=== PATIENT | male | born 1970 | race Caucasian/White ===

== ENCOUNTER 2018-04-28 10:47 | Inpatient (IN) | payer OTHER ==
[~2018-04-28] VITALS: Ht 167.6 cm; Wt 85.9 kg
[2018-04-28] VITALS (12 sets, daily range): BP systolic 170–218; BP diastolic 100–153
--- NOTE | ~2018-04-28 | EKG ---
[place], [place] ELECTROCARDIOGRAM REPORT NAME: ELLYN WALTON UNIT #: [id number] ROOM: 526 DOCTOR: KIRIT DRAFT REPORT BIRTHDATE: [address] [facility] Test Date: 2018-04-28 Test Time: 16:17:34 Pat Name: ELLYN WALTON Department: Room: 526 Gender: M Area Forester: Joan Singh : 1970 Requested By: RAJI FRAGOSO Order Number: [id number] Reading MD: Nola Melendez MD Measurements Intervals [place] Rate: 103 P: 59 [place]: 155 QRS: -14 QRSD: 105 T: 78 QT: 369 QTc: 483 Interpretive Statements Sinus tachycardia Left atrial enlargement LVH with secondary repolarization abnormality Anterior ST elevation, probably due to LVH Borderline prolonged QT interval Electronically Signed On 05-02-2018 11:48:14 PST by Nola Melendez MD CM:EKGRPT:ELECTROCARDIOGRAM REPORT [id number] RAJI CESAR DRAFT REPORT RAJI FRAGOSO DO
--- NOTE | ~2018-04-28 | PR ---
[place], [place] PROGRESS NOTE [id number] UNIT #: [id number] ROOM: 526 DOCTOR: KELLEY POSADA MD BIRTHDATE: [birth year] DOS: 05/01/2018 NEPHROLOGY PROGRESS NOTE TIME OF SERVICE: 11:30 a.m. SUBJECTIVE: The patient is seen in followup of severe renal failure. The patient continues to have voiced no complaints. He is eating and drinking well, up and walking. He has diuresed fairly well. Leg edema still present, but improving. His blood pressures remain elevated, but in general they slowly are improving, certainly from the very high levels that they had been. Overnight, blood pressures were around 158/100 and this morning, mostly in the 170s/100 to one-teens. He denies any chest pain, shortness of breath or exertional dyspnea. Unfortunately, his renal function continues to be poor and there has not been any significant improvement such as that what we would expect from a recovery of renal function. His aldosterone and renin activity are still not back. The patient will need to initiate dialysis. Unfortunately, we do not have a provider that can place a tunneled dialysis catheter at this time because of the holiday. We have discussed this with the outpatient dialysis clinic. The nurse there has organized for the patient to get an outpatient tunneled dialysis catheter in [facility] at 11:00 a.m. on May 03. He is not on any blood thinners or aspirin products. He should be n.p.o. after 5:00 a.m., which was explained to the patient. We have ordered a hepatitis panel and B surface antigen to be done, so this would return in time for his first treatment, which would be done on . Outpatient orders for dialysis will be given to the dialysis unit by myself. Volume and hypertension, this will be further managed with volume control with dialysis, titrations of his current medications will also be done, but these were recently just started and like to see how he continues to fair with initiation of dialysis and not be too aggressive at lowering this, as he is likely have this blood pressure for quite some time. I did discuss the possibility of a renal biopsy with him, but given the severity of his renal failure and likelihood of some significant scar tissue and risks of treatment, the patient would like to hold off and prefer to just start dialysis at this time. We will revisit this down the road if need be. Thank you very much for the kind consultation. We will continue to follow. Case was discussed with primary physician, who can organize discharge for the patient, Dr. Wagner. [place], [place] PROGRESS NOTE NAME: E[facility]YN WALTON [facility] [id number] UNIT #: [id number] ROOM: 526 DOCTOR: KELLEY POSADA MD BIRTHDATE: [birth year] KELLEY POSADA MD CM:PNTRANS 29 [phone] KELLEY POSADA MD 05/02/182104 interface
--- NOTE | ~2018-04-28 | PR ---
[place], [place] PROGRESS NOTE NAME: [facility] WALTON [facility] [id number] UNIT #: [id number] ROOM: 526 DOCTOR: KELLEY POSADA MD BIRTHDATE: [birth year] DOS: NEPHROLOGY PROGRESS NOTE SUBJECTIVE: Blood pressures still labile and elevated, but overall do seem to be improving from the 200s/150s and recently now into the 140-180s over 90 to one-teens, diastolics do tend to run high for him, but he has been diuresing fairly well and has lost some weight according to scales. Aldactone was started as well and potassium while still low, has been improving. Sodium did drop a bit, however. His renin and aldosterone levels are still pending. Hemoglobin is stable. His renal function is not significantly improving, however. PHYSICAL EXAMINATION: VITAL SIGNS: Blood pressure 158/100, respiratory rate 20, pulse 91, temperature 97.4. GENERAL: The patient is awake, alert and oriented, no acute distress, moving comfortably around his room, walking without significant shortness of breath or chest pains. His right greater than left lower extremity edema continues, but is slowly improving it appears. No diffuse rashes or breakdowns. LUNGS: Decreased, but clear. CARDIOVASCULAR: Regular rate. No rub. ABDOMEN: Slightly protuberant, but without tenderness or CVA pain. LABORATORIES AND DIAGNOSTICS: Sodium is 134, potassium 3.2, chloride 100, bicarbonate 20, BUN 86, creatinine 6.94. White blood cell count 12.7, hemoglobin 10.1, platelets 457. ASSESSMENT AND PLAN: Severe acute kidney injury versus advanced chronic kidney disease. We will add a renal duplex, though I doubt there is significant renal artery stenosis. I do see that he was on ibuprofen and maybe there is some acute tubular necrosis on top of advanced chronic kidney disease, but with his hematuria and some proteinuria seen, I will send serologies as the differential remains very large as documented in my note from 04/29/2018. At this point, blood pressure is still elevated and I cannot safely do a biopsy, but this may be helpful down the road. No SADIE or ARB at this point, Aldactone as I do suspect with his hypokalemia that there may be a possibility of hyperaldosteronism. Follow up renin and aldosterone levels are pending. Two liter fluid restriction because of hyponatremia is reasonable at this time. We will continue to closely monitor his progress. I did investigate with Radiology, possibly the patient may need to start dialysis as an inpatient. I did discuss it with him and his insight is overall very limited into this. He may require a medical leave of absence for a short while, while this is all sorted through. Hopefully, social science teacher may be able to help him in getting some of these things straightened out tomorrow. [place], [place] PROGRESS NOTE NAME: ANTONELLYN Rico UNIT #: [id number] ROOM: 526 DOCTOR: KELLEY POSADA MD BIRTHDATE: [birth year] KELLEY POSADA MD CM:PNTRANS 13 3 KELLEY POSADA MD 05/01/18101 interface
--- NOTE | ~2018-04-28 | PR ---
[place], [place] PROGRESS NOTE NAME: ELLYN WALTON UNIT #: [id number] ROOM: 526 DOCTOR: BRIJESH GIRALDO MD BIRTHDATE: [birth year] DOS: 04/30/2018 CARDIOLOGY FOLLOWUP VISIT NOTE REASON FOR VISIT: Hypertension and CHF. SUBJECTIVE: The patient is feeling better. He had significant edema. No chest pain, no palpitation, no dizziness, no orthopnea, no PND. REVIEW OF SYSTEMS: Review of the 8 systems negative except as mentioned above. RHYTHM STRIPS: The patient is in sinus rhythm. PHYSICAL EXAMINATION: VITAL SIGNS: Blood pressure 145/78, pulse 70, respiratory rate is 13, weight 82.6 kilos. GENERAL: Alert, comfortable, in no acute distress. NECK: Supple, no distended neck veins, no carotid bruit. CHEST: Symmetrical, nontender. LUNGS: A few scattered rhonchi. Good air entry bilaterally. HEART: Regular rhythm, no S3. ABDOMEN: Benign, nontender. Bowel sounds normal. EXTREMITIES: Showed 2+ edema. Distal pulses are palpable. SKIN: Warm and dry. No cyanosis, no clubbing. RECTAL: Deferred. GENITOURINARY: Deferred. LABORATORY DATA AND MEDICATIONS: Reviewed. Hemoglobin 10.8. BUN 86, creatinine 6.9. Potassium 3.2. IMPRESSION: 1. Acute chronic diastolic heart failure. 2. Acute renal failure. 3. Hypertension. 4. Tobacco smoking. 5. Anemia. RECOMMENDATIONS: 1. Continue diuretics and monitor his blood pressures, renal functions, and daily in and outs. 2. A 2D echo is pending. 3. Stress test when he is more stable and can be done as outpatient. 4. There is no family at bedside at the time of my examination. 5. The patient counseled to quit smoking. [place], [place] PROGRESS NOTE NAME: ELLYN WALTON UNIT #: [id number] ROOM: 526 DOCTOR: BRIJESH GIRALDO MD BIRTHDATE: [birth year] BRIJESH GIRALDO MD CM:PNTRANS [id number] BRIJESH GIRALDO MD 05/01/18 0142 interface
--- NOTE | ~2018-04-28 | EKG ---
[place], [place] ELECTROCARDIOGRAM REPORT NAME: ELLYN WALTON UNIT #: [id number] ROOM: 526 DOCTOR: KIRIT DRAFT REPORT BIRTHDATE: [birth year] [place] Test Date: 2018-04-28 Test Time: 11:21:23 Pat Name: ELLYN WALTON Department: Room: 526 Gender: M C Application Developer: Comfort Keyes : 1970 Requested By: POOL DECKER Order Number: [id number] Reading MD: Nola Melendez MD Measurements Intervals [place] Rate: 96 P: 57 [place]: 154 QRS: -18 QRSD: 106 T: 101 QT: 383 QTc: 484 Interpretive Statements Sinus rhythm LVH with secondary repolarization abnormality Borderline prolonged QT interval Electronically Signed On 04-30-2018 11:24:04 PST by Nola Melendez MD CM:EKGRPT:ELECTROCARDIOGRAM REPORT 1121 [id number] POOL DECKER EPIPHANY DRAFT REPORT POOL DECKER
--- NOTE | ~2018-04-28 | EKG ---
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
--- NOTE | ~2018-04-28 | CON ---
[place], [place] REPORT OF CONSULTATION NAME: ELLYN WALTON UNIT #: [id number] ROOM: 526 DOCTOR: BRIJESH GIRALDO MD BIRTHDATE: [birth year] DOS: 04/29/2018 REASON FOR CONSULTATION: CHF. CLINICAL HISTORY: The patient is a 48-year-old gentleman with history of hypertension, tobacco use, COPD, admitted to the Emergency Room for progressive shortness of breath for 1 week. He also has some orthopnea, but no PND. No fever or chills. No nausea, vomiting, diarrhea. No chest pains, no palpitations. He did have some lower extremity edema. He was admitted for CHF exacerbation and Cardiology consulted for any further recommendation. He was noted to have significant elevation of his renal function with acute renal failure and also borderline elevation of his troponins. He was treated with IV diuretics and symptomatic, feeling better. At the time of examination, the patient is alert, oriented. Denies any chest pain. Breathing is much better. No palpitation, no dizziness, no orthopnea. No nausea, vomiting, diarrhea. No bladder or bowel symptoms. No musculoskeletal symptoms. No neurologic symptoms. REVIEW OF SYSTEMS: Review of the 10 systems negative except as mentioned above. PAST MEDICAL HISTORY: 1. Hypertension. 2. Bronchitis. 3. Anemia. PAST SURGICAL HISTORY: No significant surgical history. SOCIAL HISTORY: The patient does not drink alcohol, does not use illicit drugs, does chew tobacco. FAMILY HISTORY: Father had hypertension and high cholesterol. Mother had diabetes. Both are living. ALLERGIES: No known drug allergies. HOME MEDICATIONS: Reviewed. PHYSICAL EXAMINATION: VITAL SIGNS: Blood pressure is 180/102, respiratory rate is 92, pulse, 20, weight is 86.4 kilos, BMI 30.8. GENERAL: Alert, comfortable, in no acute distress. NECK: Supple, no distended neck veins, no carotid bruit. CHEST: Symmetrical, nontender. LUNGS: Few scattered rhonchi, but good air entry bilaterally. HEART: Regular rhythm, no S3. Grade 1/6 systolic murmur. ABDOMEN: Benign, nontender. Bowel sounds normal. EXTREMITIES: Showed 1+ edema. Distal pulses are palpable. SKIN: Warm and dry. No cyanosis, no clubbing. RECTAL: Deferred. GENITOURINARY: Deferred. [place], [place] REPORT OF CONSULTATION NAME: ELLYN WALTON UNIT #: [id number] ROOM: 526 DOCTOR: KRISTAL MENDEZ,BRIJESH BIRTHDATE: [birth year] MUSCULOSKELETAL: No joint tenderness or swelling. REVIEW OF THE DIAGNOSTIC TESTS: Labs, imaging studies, EKG reviewed. EKG showed sinus rhythm, sinus tachycardia, LV hypertrophy with anterior ST-T changes, also left atrial enlargement. Hemoglobin 9.9, WBC count 13,000, platelet count normal. Potassium 3.3, BUN 79, creatinine 6.7. The troponins are ranged from 0.23 to 0.27. ProBNP was 48,530. MEDICATIONS: Reviewed. IMPRESSION: 1. Acute on chronic heart failure, possible diastolic heart failure. 2. Acute renal failure. 3. Hypertension. 4. Elevated troponin. 5. Non-morbid obesity. RECOMMENDATIONS: 1. The patient denies any chest pain. His breathing is better. 2. Continue IV diuretics and monitor his blood pressure and daily ins and outs as well as his renal function. 3. Elevated troponin positive due to acute renal failure and the patient denies any chest pain. 4. He needs blood pressure control. 5. Watch his hemoglobin and renal function. 6. A 2D echo was ordered to check his LV function and LV hypertrophy. 7. When his blood pressure is stable, Lexiscan stress test, possibly Tuesday. 8. There is no family at bedside at the time of my examination. 9. Renal consultants on case for his acute renal failure. BRIJESH GIRALDO MD CM:CONSTR:REPORT OF CONSULTATION 38 06/13/18 0859 interface
--- NOTE | ~2018-04-28 | PR ---
[place], [place] PROGRESS NOTE NAME: ELLYN WALTON UNIT #: [id number] ROOM: [facility] DOCTOR: ALBINO MENDEZKELLEY Heydi BIRTHDATE: [birth year] DOS: 04/29/2018 NEPHROLOGY PROGRESS NOTE The patient is seen in followup of severe acute kidney injury versus advanced chronic kidney disease. He is without acute complaints overnight. Blood pressures remain on the high end especially his diastolics which sometimes get up in the 120s to 130s. His heart rate has slowed down. He is breathing comfortably. He is saturating well on room air. He had a VQ scan done in the ER for unclear reasons, which was negative. A lower extremity Doppler was late to being done, but it showed no evidence of DVT. Even though his right leg was a bit more swollen than his left and he was slightly tender on the calf. There is increased echogenicity of the renal ultrasound. The bladder was distended, but bilateral ureteral jets were visualized. No hydronephrosis was seen. The right kidney was 9.3, the left kidney 10.4 cm. Doppler evaluation was not apparently done. Urinalysis shows 2+ protein, 2+ blood. Urine eos are pending. FENa was greater than 1%, potassium handling seems appropriate. Protein creatinine ratio was elevated at 5.7 grams per gram. This may be falsely elevated because of his severe loss of GFR. His creatinine today is slightly lower 6.7 from 7.1. It was confirmed that he was taking ibuprofen daily as a p.r.n. medication at home when he would be at work as well. He was started on Lasix IV daily 40 mg and with blood pressures yesterday evening, I added clonidine 0.6 q. 6 hours and hydralazine IV p.r.n. I did want to get his aldosterone and renin levels checked. There are no results of course back yet, but now given that we have the labs sent off, I have added spironolactone 25 mg b.i.d. this morning. Blood pressures do seem to be somewhat improving with this even though it was not charted in the computer yet. His blood pressure is from 180s to 190s over 100s to 120s down 150s/90s. I do not want him dropping much lower than the 150/80 range at this point. OBJECTIVE: VITAL SIGNS: His most recent vital signs are afebrile, heart rates in the 80s-90s, respiratory rate 18, blood pressure 156/86. GENERAL: Awake, alert and oriented, mentally intellectually possibly some delay, but doing very well. Hearing is limited. Oropharynx: Clear. Mucous membranes moist. No JVD or lymphadenopathy. LUNGS: No pleural or pericardial rub. Lung stephenson are clear. ABDOMEN: Soft, slightly distended. No rebound or guarding. EXTREMITIES: Mild edema, stable right greater than left, slightly. Some scarred areas of excoriations unchanged. LABORATORY DATA AND DIAGNOSTICS: White blood cell count 13.0 stable, hemoglobin 9.9, platelets 454. No significant serum eosinophilia. INR 1.1. Sodium 140, potassium 3, chloride 105, bicarbonate 21, BUN 79, creatinine 6.7, glucose 103, A1c 5.9, calcium 8, phosphorus 5.6, magnesium 2.6, albumin 2.3. Vitamin D 16. TSH 3. Troponin 0.26 and stable. Urinalysis mentioned above. ASSESSMENT AND PLAN: Severe acute kidney injury versus advanced chronic kidney disease. Renal duplex will be helpful to rule out a renal artery stenosis; however, at this point, I suspect acute tubular necrosis on top of advanced [place], [place] PROGRESS NOTE NAME: ELLYN WALTON UNIT #: [id number] ROOM: [facility] DOCTOR: KELLEY POSADA MD BIRTHDATE: [birth year] chronic kidney disease being the most likely etiology. I cannot rule out advance glomerulonephritis or glomerulopathy given what likely is some proteinuria, mild hematuria and uncontrolled hypertension. The nephrotic syndrome could be from multiple causes membranous, FSG, minimal change versus others such as a more nephritic pattern of MPGN or IgA nephropathy. Does not have any other evidence of lupus, but certainly that could be on the differential as well as it is very wide at this point. I would not recommend a biopsy acutely. We will need to see where his baseline creatinine comes down to consider serologic evaluation, but for now, blood pressure control is of primary importance and must be brought down slowly. Plan for a goal of around 150/80 and eventually lower still. No SADIE or ARB at this point was added. Aldactone as I suspect there is a possibility of hyperaldosteronism. Renin and aldosterone levels have been sent and pending. The other possibility of Kvng syndrome is possible as well with activation of the epithelial sodium channel. For now, we would like to closely follow serially with laboratories daily and strict intake and output probably a 2-liter fluid restriction will be reasonable as we try to diurese him a bit for his blood pressure. KELLEY POSADA MD CM:PNTRANS [id number] KELLEY POSADA MD 04/29/18 1230 interface
[~2018-04-28 10:47] MED LIST: LOPRESSOR50 M1 PO; ZITHROMAX250 MG PO
[2018-04-28 11:20] LABS: BASO # 0.1 10*3/uL (0.0-0.1); BASO % 0.7 % (0.0-1.0); EOS # 0.3 10*3/uL (0.0-0.4); EOS % 1.8 % (1.0-4.0); HEMATOCRIT 33.8 % (42.0-52.0); HEMOGLOBIN 11.2 g/dl (14.0-18.0); LYMPH # 1.9 10*3/uL (1.3-4.4); LYMPH % 13.6 % (27.0-41.0); MEAN CELL VOLUME 82.4 fl (80.0-94.0); MEAN CORPUSCULAR HGB 27.3 pg (27.0-31.0); MEAN CORPUSCULAR HGB CONC 33.1 g/dl (33.0-37.0); MEAN PLATELET VOLUME 10.2 fl (9.6-12.3); MONO # 0.8 10*3/uL (0.1-1.0); NEUT # 10.5 10*3/uL (2.3-7.9); NEUT % 77.1 % (47.0-73.0); PLATELET COUNT AUTOMATED 506 10*3/uL (130-400); WHITE BLOOD COUNT 13.6 10*3/uL (4.8-10.8)
[2018-04-28 11:38] LABS: ALBUMIN 2.5 gm/dl (3.1-4.5); CREATININE 7.13 mg/dL (0.70-1.30); POTASSIUM 2.8 mmol/L (3.5-5.1); TOTAL PROTEIN 6.4 gm/dL (6.4-8.2)
[2018-04-28 11:43] LABS: TROPONIN I 0.277 ng/ml (<0.045)
--- NOTE | 2018-04-28 11:43 | NUR ---
NOTIFIED BY LAB PTS TROPONIN 0.277. PAULA [employer] CHIEF CREATIVE OFFICER NOTIFIED.
--- NOTE | 2018-04-28 12:50 | NUR ---
PT REMAINS W/O ACUTE DISTRESS NOTED AWAITING ALL RESULTS FOR ADDITIONAL PLAN OF CARE,SAFETY PRECAUTIONS INTACT AND CALL LIGHT WITHIN REACH.PT POSITIONED FOR COMFORT AND WILL CONTINUE TO MONITOR, NO ADDITIONAL COMPLAINTS VOICED.
--- NOTE | 2018-04-28 14:46 | NUR ---
PT TO NUCLEAR MEDICINE FOR LUNG PERFUSION SCAN, NO COMPLAINTS VOICED.
[2018-04-28 15:01] LABS: ACT PARTIAL THROMBO TIME 25.7 SECONDS (20.8-31.5); INTERNATIONAL NORM RATIO 1.1 (2.0-3.5)
--- NOTE | 2018-04-28 15:44 | NUR ---
PT RETURNED FROM LUNG PERFUSION SCAN WITHOUT ACUTE DISTRESS NOTED.
--- NOTE | 2018-04-28 15:55 | NUR ---
A 48, admitted to ICCU, under the services of SAULO Hogue DO with a diagnosis of HYPERTENSIVE EMERGENCY,ACUTE RENAL FAILURE, AND CHF. Chief complaint is SHORTNESS OF BREATH AND LEG SWELLING. Patient arrived via stretcher from ER. Monitor applied. Initial assessment completed. Vital signs taken and recorded. SAULO HOGUE DO notified of admission to the unit. Orders received. See assessment for past medical history, medications and allergies. Patient and/or family oriented to unit. [facility] visitation policy reviewed. Clothing/patient valuable form completed. MIRTHA PENN
--- NOTE | 2018-04-28 17:30 | NUR ---
NOTIFIED OF NEW CONSULT ORDER. NO NEW ORDERS RECEIVED.
[2018-04-28 18:45] LABS: CREATININE 7.13 mg/dL (0.70-1.30)
[2018-04-28 18:52] LABS: BILIRUBIN NEGATIVE (NEGATIVE); BLOOD 2+ (NEGATIVE); CLARITY CLEAR (CLEAR); COLOR YELLOW (YELLOW); GLUCOSE TRACE (NEGATIVE); KETONE NEGATIVE (NEGATIVE); LEUKO ESTERASE NEGATIVE (NEGATIVE); NITRITE NEGATIVE (NEGATIVE); UROBILINOGEN 0.2 E.U./dl (0.2-1.0)
[2018-04-28 19:01] LABS: URINE CREATININE RANDOM 32.7 mg/dL
[2018-04-28 19:12] LABS: RBC 0-2 rbc/hpf (0-2)
[2018-04-28] MEDS ORDERED: TOPCARE IBUPRO200 MG PO (19:17)
[2018-04-28] MEDS ORDERED: COLD & ALLERGY1 EAC1 PO (19:20)
--- NOTE | 2018-04-28 19:25 | NUR ---
DR ALBINO ORANTES.
--- NOTE | 2018-04-28 19:58 | NUR ---
I SPOKE WITH DR ALBINO VASQUEZ: KAYLEE, BP.
--- NOTE | 2018-04-28 20:01 | NUR ---
DR POSADA STATES APPROVAL WITH DR STEWART RE: RENIN AND ALDOSTERONE TESTING AND TO NOTIFY LAB AND ORDER.
--- NOTE | 2018-04-28 20:17 | NUR ---
I SPOKE TO MARTI IN LAB AND BECAUSE SPECIMEN IS A SEND OUT AND WILL BE DONE AND ORDERED WITH AM LABS.
--- NOTE | 2018-04-28 21:03 | NUR ---
DR RODRÍGUEZ NOTIFIED OF TROPONIN.
--- NOTE | 2018-04-28 21:04 | NUR ---
ADDENDUM: REMINDED DR RODRÍGUEZ THAT ALDOSTERONE AND RENIN ALSO ORDERED PER DR POSADA APPROVAL BY DR STEWART. AND THAT CLONIDINE STARTED EARLY PER DR POSADA.
[2018-04-29] VITALS (7 sets, daily range): BP systolic 152–196; BP diastolic 70–123
[2018-04-29 05:16] LABS: ALBUMIN 2.3 gm/dl (3.1-4.5); CREATININE 6.7 mg/dL (0.70-1.30); PHOSPHOROUS 5.6 mg/dL (2.5-4.9); TOTAL PROTEIN 5.7 gm/dL (6.4-8.2)
--- NOTE | 2018-04-29 05:19 | NUR ---
HYDRALAZINE GIVEN FOR BP 181/123 AB AND 180/102 MANUALLY LA.
[2018-04-29 05:59] LABS: BASO # 0.1 10*3/uL (0.0-0.1); BASO % 0.8 % (0.0-1.0); EOS # 0.4 10*3/uL (0.0-0.4); EOS % 3.2 % (1.0-4.0); HEMATOCRIT 30.6 % (42.0-52.0); HEMOGLOBIN 9.9 g/dl (14.0-18.0); LYMPH # 2.2 10*3/uL (1.3-4.4); LYMPH % 16.8 % (27.0-41.0); MEAN CELL VOLUME 84.3 fl (80.0-94.0); MEAN CORPUSCULAR HGB 27.3 pg (27.0-31.0); MEAN CORPUSCULAR HGB CONC 32.4 g/dl (33.0-37.0); MEAN PLATELET VOLUME 10.6 fl (9.6-12.3); MONO # 0.8 10*3/uL (0.1-1.0); MONO % 6.1 % (3.0-9.0); NEUT # 9.4 10*3/uL (2.3-7.9); NEUT % 72.6 % (47.0-73.0); PLATELET COUNT AUTOMATED 454 10*3/uL (130-400); RED BLOOD COUNT 3.63 10*6/uL (4.50-5.90); RED CELL DISTRI WIDTH 13.9 % (0-14.5)
[2018-04-29 06:43] LABS: INTERNATIONAL NORM RATIO 1.1 (2.0-3.5)
[2018-04-29 07:17] LABS: VITAMIN D, 25-HYDROXY 16.2 ng/mL (30-100)
--- NOTE | 2018-04-29 08:45 | NUR ---
DR OLIVEIRA UPDATED ON PT'S CONTINUED HYPERTENSION. NEW ORDERS RECEIVED.
--- NOTE | 2018-04-29 09:15 | NUR ---
DR LINARES IN TO SEE PT. UPDATED HIM ON PT'S CONDITION AND PLAN OF CARE.
--- NOTE | 2018-04-29 09:30 | NUR ---
DR PRITCHARD CALLED IN REGARDING PT'S CONDITON AND AM LAB RESULTS. NEW ORDERS RECEIVED.
--- NOTE | 2018-04-29 14:44 | NUR ---
Shift chart check completed.
--- NOTE | 2018-04-29 17:47 | NUR ---
EXPLAINED TO PATIENT & SONS THAT HE NEEDS TO LIMIT FLUIDS, LIMIT SALT & ELEVATE FEET.
--- NOTE | 2018-04-29 23:30 | NUR ---
MEDICATED WITH HYDRALAZINE PER PRN ORDER FOR BP 180/116 (M).
--- NOTE | 2018-04-29 23:40 | NUR ---
MEDICATED WITH TLENOL AND RESTORIL PER PRN ORDER FOR C/O HEADACHE AND INSOMNIA.
[2018-04-30] VITALS: BP 180/116
--- NOTE | 2018-04-30 01:15 | NUR ---
BP 160/106 (M) AT THIS TIME. TYLENOL AND RESTORIL EFFECTIVE.
--- NOTE | 2018-04-30 01:21 | NUR ---
DR HALE NOTIFIED OF BP 160/106 AND NO NEW ORDERS RECEIVED AT THIS TIME.
[2018-04-30 04:00] VITALS: BP 160/104
[2018-04-30 05:59] LABS: BASO # 0.1 10*3/uL (0.0-0.1); BASO % 0.6 % (0.0-1.0); EOS # 0.5 10*3/uL (0.0-0.4); EOS % 4.2 % (1.0-4.0); HEMATOCRIT 30.9 % (42.0-52.0); HEMOGLOBIN 10.1 g/dl (14.0-18.0); LYMPH # 2.7 10*3/uL (1.3-4.4); LYMPH % 21.4 % (27.0-41.0); MEAN CELL VOLUME 83.7 fl (80.0-94.0); MEAN CORPUSCULAR HGB 27.4 pg (27.0-31.0); MEAN CORPUSCULAR HGB CONC 32.7 g/dl (33.0-37.0); MEAN PLATELET VOLUME 10.9 fl (9.6-12.3); MONO # 0.9 10*3/uL (0.1-1.0); MONO % 6.9 % (3.0-9.0); NEUT # 8.4 10*3/uL (2.3-7.9); NEUT % 66.3 % (47.0-73.0); PLATELET COUNT AUTOMATED 457 10*3/uL (130-400); RED BLOOD COUNT 3.69 10*6/uL (4.50-5.90); WHITE BLOOD COUNT 12.7 10*3/uL (4.8-10.8)
[2018-04-30 06:08] LABS: CREATININE 6.94 mg/dL (0.70-1.30); POTASSIUM 3.2 mmol/L (3.5-5.1)
[2018-04-30 08:00] VITALS: BP 144/98
[2018-04-30 12:00] VITALS: BP 177/123
[2018-04-30 17:00] VITALS: BP 158/100
--- NOTE | 2018-04-30 17:17 | NUR ---
MANUAL BP 158/100. SCHEDULED MEDS GIVEN. DR OLIVEIRA NOTIFIED ALSO. NO NEW ORDERS AT THIS TIME.
--- NOTE | 2018-04-30 17:46 | NUR ---
DR POSADA IN TO SEE PT. AWARE OF BP'S.
[2018-04-30 20:00] VITALS: BP 179/120
[2018-05-01] VITALS: BP 174/110
[2018-05-01 04:00] VITALS: BP 178/109
[2018-05-01 08:26] LABS: BASO # 0.1 10*3/uL (0.0-0.1); BASO % 0.7 % (0.0-1.0); EOS # 0.3 10*3/uL (0.0-0.4); EOS % 3.2 % (1.0-4.0); HEMATOCRIT 30.2 % (42.0-52.0); HEMOGLOBIN 9.8 g/dl (14.0-18.0); LYMPH # 1.8 10*3/uL (1.3-4.4); LYMPH % 17.3 % (27.0-41.0); MEAN CELL VOLUME 83.7 fl (80.0-94.0); MEAN CORPUSCULAR HGB 27.1 pg (27.0-31.0); MEAN CORPUSCULAR HGB CONC 32.5 g/dl (33.0-37.0); MEAN PLATELET VOLUME 10.3 fl (9.6-12.3); MONO # 0.7 10*3/uL (0.1-1.0); MONO % 6.7 % (3.0-9.0); NEUT # 7.3 10*3/uL (2.3-7.9); NEUT % 71.6 % (47.0-73.0); PLATELET COUNT AUTOMATED 433 10*3/uL (130-400); RED BLOOD COUNT 3.61 10*6/uL (4.50-5.90); RED CELL DISTRI WIDTH 14.1 % (0-14.5); WHITE BLOOD COUNT 10.3 10*3/uL (4.8-10.8)
[2018-05-01 08:46] LABS: ALBUMIN 2.4 gm/dl (3.1-4.5); CREATININE 7.12 mg/dL (0.70-1.30); POTASSIUM 3.2 mmol/L (3.5-5.1)
--- NOTE | 2018-05-01 09:45 | NUR ---
PATIENT MEDICATED PER DRS ORDERS AT THIS TIME. RN WILL CONTINUE TO MONITOR
--- NOTE | 2018-05-01 11:23 | NUR ---
PER DR POSADA= PATIENT HAS APPOINTMENT TO HAVE DIALYSIS CATHETER INSERTED AT [facility] ON TuesdayMay AT 11AM. PATIENT IS TO REMAIN NPO AFTER 5AM ON THE IN PREPARATION. ALSO TO USE ENTRANCE A AND THEN GO TO REGISTRATION.
[2018-05-01 12:00] VITALS: BP 174/110
--- NOTE | 2018-05-01 12:47 | NUR ---
Customer Greeter in to talk to patient. Patient states lives at HOME with PARENTS. There are NO steps in the home. Physician: NONE AT THIS TIME, STATES HIS DOCTOR LEFT [facility] Pharmacy: [facility] Home health services: NONE Patient's level of ADLs: INDEPENDENT Patient has working utilities: YES DME: NONE Follow-up physician's appointment after d/c: WILL FIND ONE AFTER DICHARGE AND MAKE APPOINTMENT Does patient want to access PORTAL?: NO Discharge plan PT STATES HE PLANS TO RETURN HOME WITH HIS PARENTS AFTER DISCHARGE AND HAS NO NEEDS AT HOME AT THIS TIME. WILL CONTINUE TO FOLLOW.. GLADIS YOUNG
[2018-05-01] MEDS ORDERED: ALDACTONE25 MG PO (13:46)
[2018-05-01] MEDS ORDERED: FUROSEMIDE80 MG PO (13:46)
[2018-05-01] MEDS ORDERED: 'CLONIDINE0.1 MG PO (13:46)
[2018-05-01 14:54] LABS: ALBUMIN 2.5 gm/dl (3.1-4.5); ALKALINE PHOSPHATASE 67 U/L (45-117); BILIRUBIN, DIRECT < 0.1 mg/dL (0.0-0.2); SGOT/AST 20 IU/L (3-35); SGPT/ALT 28 U/L (12-78); TOTAL PROTEIN 6.4 gm/dL (6.4-8.2)
--- NOTE | 2018-05-01 16:05 | NUR ---
IV discontinued. Site asymptomatic. Pressure applied. Sterile dressing applied. KARLOS OSPINA
--- NOTE | 2018-05-01 16:10 | NUR ---
Discharge instructions reviewed with patient/family. Patient receptive and verbalizes understanding. Follow-up care arranged. Written instructions given to patient/family. KARLOS OSPINA
--- NOTE | 2018-05-01 16:16 | NUR ---
PATIENT OFF THE FLOOR WITH FAMILY AT THIS TIME. ALL BELONGINGS WITH PATIENT
[2018-05-02 06:06] LABS: HEP B CORE AB TOTAL 006718 Negative (Negative)
[2018-05-04 04:07] LABS: HEPATITIS B SURFACE AB 006395 Non Reactive (.); HEPATITIS B SURFACE AG Negative (Negative); HEPATITIS C VIRUS ANTIBODY <0.1 s/co (0.0-0.9)
[2018-05-29] MEDS ORDERED: LISINOPRIL20 MG PO (08:36)
[2018-05-29] MEDS ORDERED: COREG3.125 MG PO (08:37)
== END 2018-05-01 16:16 | disposition home or self-care (01) | DRG 682 ==
LOC: ED → EDHOLD 11:58 → 5E 11:58 → ICCU 13:51 → 5E 04-30 10:48
PROVIDERS: Family Medicine; Internal Medicine; Internal Medicine Nephrology; Nurse Practitioner Family; Surgery; ADMIT Internal Medicine
DX: N17.0 Acute kidney failure with tubular necrosis (principal); R65.11 Systemic inflammatory response syndrome (SIRS) of non-infectious origin with acute organ dysfunction; E43 Unspecified severe protein-calorie malnutrition; I50.33 Acute on chronic diastolic (congestive) heart failure; I16.1 Hypertensive emergency; E87.1 Hypo-osmolality and hyponatremia; I11.0 Hypertensive heart disease with heart failure; R74.8 Abnormal levels of other serum enzymes; E87.6 Hypokalemia; D64.9 Anemia, unspecified; D72.829 Elevated white blood cell count, unspecified; E66.8 Other obesity; T39.395A Adverse effect of other nonsteroidal anti-inflammatory drugs [NSAID], initial encounter; R73.9 Hyperglycemia, unspecified; E83.41 Hypermagnesemia; I87.2 Venous insufficiency (chronic) (peripheral); D47.3 Essential (hemorrhagic) thrombocythemia; Z72.0 Tobacco use; Z71.6 Tobacco abuse counseling; Z83.3 Family history of diabetes mellitus; Z82.49 Family history of ischemic heart disease and other diseases of the circulatory system; Z83.438 Family history of other disorder of lipoprotein metabolism and other lipidemia; Z68.30 Body mass index [BMI] 30.0-30.9, adult; Z79.899 Other long term (current) drug therapy; Y92.89 Other specified places as the place of occurrence of the external cause

== ENCOUNTER → 2018-05-09 | Outpatient (CLI) | payer OTHER ==
[~2018-05-09] MED LIST changes: +'CLONIDINE0.1 MG PO; +ALDACTONE25 MG PO; +COLD & ALLERGY1 EAC1 PO; +COREG3.125 MG PO; +FUROSEMIDE80 MG PO; +LISINOPRIL20 MG PO; +TOPCARE IBUPRO200 MG PO
== END | disposition home or self-care (01) ==
LOC: RESCLI 01:45
DX: I11.0 Hypertensive heart disease with heart failure (principal); I50.22 Chronic systolic (congestive) heart failure; N17.0 Acute kidney failure with tubular necrosis; R74.8 Abnormal levels of other serum enzymes; I87.2 Venous insufficiency (chronic) (peripheral); F17.210 Nicotine dependence, cigarettes, uncomplicated; Z71.6 Tobacco abuse counseling; Z79.899 Other long term (current) drug therapy

== ENCOUNTER → 2018-05-29 | Outpatient (CLI) | payer OTHER ==
--- NOTE | ~2018-05-29 | ST ---
[place], [place] EXERCISE STRESS TEST REPORT NAME: ELLYN WALTON UNIT #: [id number] ROOM: DOCTOR: JUDD ROWE MD BIRTHDATE: [birth year] DOS: 05/29/2018 EXERCISE STRESS TEST REASON: Acute diastolic heart failure, elevated troponin. PROCEDURE DETAILS: The patient walked on a full Devon protocol for 9 minutes with an additional 50 seconds at stage 3, for a total of 9 minutes 50 seconds. He stopped for fatigue and had no chest pain. His resting heart rate of 87 bernarda to 150, which represented 87% of his maximum predicted heart rate. His resting blood pressure of 140/94 bernarda to 164/100. He did have occasional isolated PVCs, but no other arrhythmias. His electrocardiogram showed left ventricular hypertrophy, but he did not have any diagnostic electrocardiographic changes with exercise. He had no chest pain. One minute prior to the completion of the exercise protocol, he was given radionuclide intravenously. IMPRESSIONS: 1. Good exercise capacity without chest pain or diagnostic electrocardiographic changes. 2. Jhaveri treadmill score 9.6 consistent with low risk for major adverse cardiac events. 3. Radionuclide administered. Please see the separate imaging report for further details of the patient's stress test results. JUDD ROWE MD CM:STRESS:EXERCISE STRESS TEST REPORT [id number] JUDD ROWE MD
--- NOTE | 2018-05-29 08:30 | NUR ---
INFORMED CONSENT OBTAINED FOR A CARDIOLITE STRESS TEST WITH DR. ROWE. RESTING EKG NSR WITH PVC'S, SUPINE BP OF 148/98, HT RT OF 87 AND A HT RT OF 95, WITH A BP OF 140/94 IN THE STANDING POSITION. PT COMPLETED 9:50 OF A MARY JANE PROTOCOL WITH STAGE THREE HELD FOR 50 SECONDS AT 3.4 MPH AND 14% GRADE. REACHED A PEAK HT RT OF 150 WHICH IS 87% OF PREDICTED MAX WITH A PEAK BP OF 164/100. TEST TERMINATED DUE TO FATIUGE. DENIED CHEST PAIN. EXERCISE TOLERANCE WAS HIGH. LAST RECOVERY HT RT OF 129 WITH A BP OF 144/90. TAKEN TO NUCLEAR IMAGING IN STABLE CONDITION.
== END | disposition home or self-care (01) ==
LOC: CARD 00:15
DX: I50.31 Acute diastolic (congestive) heart failure (principal); R74.8 Abnormal levels of other serum enzymes

== ENCOUNTER → 2018-12-04 | Outpatient (CLI) | payer MEDICARE, MEDICAID ==
[2018-12-04 12:03] LABS: ACT PARTIAL THROMBO TIME 25.9 SECONDS (20.0-32.1); INTERNATIONAL NORM RATIO 0.9 (2.0-3.5)
== END | disposition home or self-care (01) ==
LOC: LAB 10:31
PROVIDERS: Surgery Vascular Surgery
DX: D68.9 Coagulation defect, unspecified (principal)

== ENCOUNTER → 2020-03-26 | Outpatient (CLI) | payer MEDICARE, MEDICAID ==
[~2020-03-26] MED LIST changes: +AURYXIA210 MG PO; -COREG3.125 MG PO; +COREG6.25 MG PO; -LISINOPRIL20 MG PO; +NEPHRO-VITE TA0.8 MG PO; +ZESTRIL10 MG PO
--- NOTE | 2020-03-26 09:33 | NUR ---
INFORMED SIGNED CONSENT OBTAINED FOR LEXISCAN STRESS TEST WITH DR CARD. RESTING EKG NSR HR 63 T WAVE INVERSION , BP 122/60. PULSE OX 100% LUNGS CLEAR. PT COMPLETED ONE MINUTE OF A LEXISCAN PROTOCOL WITH PT RECEIVING LEXISCAN 0.4MG IV OVER 10 SECONDS. PT C/O SOB WITH INJECTION THAT RESOLVED. NO ARRHYTHMIAS OR ST CHANGES NOTED. LAST RECOVERY HR OF 83 BP[ 130/62 PT IN STABLE CONDITION, AWAITING NUCLEAR IMAGES.
== END | disposition home or self-care (01) ==
LOC: US 00:15
PROVIDERS: ATTEND Internal Medicine Nephrology
DX: Z01.818 Encounter for other preprocedural examination (principal); N28.9 Disorder of kidney and ureter, unspecified; I51.7 Cardiomegaly; R07.89 Other chest pain

== ENCOUNTER 2020-04-17 06:47 | Inpatient (IN) | payer MEDICARE, MEDICAID ==
[~2020-04-17] VITALS: Ht 168 cm; Wt 71.3 kg
[2020-04-17] VITALS (7 sets, daily range): BP systolic 70–84; BP diastolic 38–50
--- NOTE | 2020-04-17 06:56 | NUR ---
PT GIVEN URINAL AT THIS TIME AND INFORMED OF NEED FOR URINE SAMPLE. PT STATES HE WILL LET US KNOW WHEN HE NEEDS TO URINATE.
[2020-04-17 07:22] LABS: HEMATOCRIT 37.6 % (42.0-52.0); MEAN CORPUSCULAR HGB 30.3 pg (27.0-31.0); MEAN CORPUSCULAR HGB CONC 32.2 g/dl (33.0-37.0); MEAN PLATELET VOLUME 9.8 fl (9.6-12.3); NUCLEATED RED BLOOD CELL 0.1 % (0.0-0.0); PLATELET COUNT AUTOMATED 311 10*3/uL (130-400); RED CELL DISTRI WIDTH 15.4 % (0-14.5); WHITE BLOOD COUNT 15.9 10*3/uL (4.8-10.8)
[2020-04-17 07:39] LABS: ALBUMIN 3.8 gm/dl (3.1-4.5); BASOPHILS 1 % (0-1); CREATININE 12.9 mg/dL (0.70-1.30); PLATELET SUFFICIENCY NORMAL (NORMAL); POTASSIUM 3.7 mmol/L (3.5-5.1); TOTAL CELLS COUNTED 100 #CELLS; TOTAL PROTEIN 8.6 gm/dL (6.4-8.2)
--- NOTE | 2020-04-17 09:32 | NUR ---
DR FRAGOSO TALKED WITH DR OCHOA WHO IS COVERING FOR DR GARCIA ON THE PHONE.
--- NOTE | 2020-04-17 11:52 | NUR ---
DR OCHOA IN PT'S ROOM DISCUSSING PLAN OF CARE WITH. DR OCHOA AWARE OF PT'S BLOOD PRESSURE.
--- NOTE | 2020-04-17 22:12 | NUR ---
PATIENT NIBP 65/42. MANUAL BP TAKEN 70/50. BRADY CARD RN AWARE. PATIENT IS ASYMPTOMATIC.
--- NOTE | 2020-04-17 22:21 | NUR ---
ADVISED DR. COOPER OF THIS PATIENTS BP AT THIS TIME, STATES IF ASYMPTOMATIC TO MONITOR.
[2020-04-18] VITALS (10 sets, daily range): BP systolic 80–114; BP diastolic 44–69
[2020-04-18 05:49] LABS: ALBUMIN 3.5 gm/dl (3.1-4.5); CREATININE 15.7 mg/dL (0.70-1.30); POTASSIUM 3.8 mmol/L (3.5-5.1)
[2020-04-18 05:57] LABS: FREE T4 0.73 ng/dl (0.76-1.46); THYROID STIM HORMONE (HS) 2.06 uIU/ml (0.358-4.75)
[2020-04-18 06:42] LABS: BASO # 0.1 10*3/uL (0.0-0.1); BASO % 0.4 % (0.0-1.0); EOS % 0.1 % (1.0-4.0); HEMATOCRIT 34.6 % (42.0-52.0); LYMPH # 2.1 10*3/uL (1.3-4.4); LYMPH % 14.8 % (27.0-41.0); MEAN CELL VOLUME 90.6 fl (80.0-94.0); MEAN CORPUSCULAR HGB 30.6 pg (27.0-31.0); MEAN CORPUSCULAR HGB CONC 33.8 g/dl (33.0-37.0); MEAN PLATELET VOLUME 10.7 fl (9.6-12.3); MONO # 1.5 10*3/uL (0.1-1.0); MONO % 10.7 % (3.0-9.0); NEUT # 10.1 10*3/uL (2.3-7.9); NEUT % 72.9 % (47.0-73.0); NUCLEATED RED BLOOD CELL 0.1 % (0.0-0.0); PLATELET COUNT AUTOMATED 327 10*3/uL (130-400); RED BLOOD COUNT 3.82 10*6/uL (4.50-5.90); RED CELL DISTRI WIDTH 15.2 % (0-14.5); WHITE BLOOD COUNT 13.9 10*3/uL (4.8-10.8)
[2020-04-18 08:15] LABS: VITAMIN D, 25-HYDROXY 34.7 ng/mL (30-100)
--- NOTE | 2020-04-18 09:00 | NUR ---
STARLA HUTTON CALLED FROM FLOOR AND WAS TOLD BY DIALYSIS NURSE PT WILL NOT BE ABLE TO HAVE DIALYSIS TODAY WITH LOW BLOOD PRESSURE SO PT NEEDS TO BE PUT ON LEVOPHED AND PUT IN ICCU PER NEPHROLOGY.
--- NOTE | 2020-04-18 11:15 | NUR ---
SPOKE WITH [facility] DAY[facility] CRISIS, ONEIL, I ASKED HER ABOUT THIS CLIENT AND THE SITUATION, SHE SAID THAT SHE WOULD CALL THE BOARD AND GET BACK TO ME. SHE CALLED ME BACK AND SAID THAT THE BOARD SAID THAT I NEED TO CALL ALL THE PRIVATE HOSPITALS THAT I WOULD NORMALLY REFER TO AND SEE IF THEY WOULD ACCEPT THIS CLIENTS INS, I DID CALL 5 INPATIENT PSYCHIATRIC UNITS, WHICH ALL SAID NO, I CALLED ONEIL BACK AND SHE WILL CALL THE BOARD BACK AND THEN CALL ME, IF THEY AGREE TO FUND A PRIVATE INPATIENT PSYCHIATRIC STAY THEN SHE HAS TO COME HERE AND PRESCREEN THOUGH CLIENT WERE GOING TO THE [facility] AND THEN SHE OR I WILL HAVE TO CALL THE SPECIFIC PRIVATE HOSPITALS ON THE LIST THE BOARDS APPROVED UNITS AND TRY TO FIND A BED FOR THIS CLIENT, I WILL WAIT TO HEAR FROM HER.
--- NOTE | 2020-04-18 12:17 | NUR ---
PATIENT RECEIVED PNEUMOCOCCAL VACCINE 0.5ML IM IN LEFT DELTOID AND TOLERATED WELL.
--- NOTE | 2020-04-18 14:00 | NUR ---
Pt transferred from ED hold to room 504-2. Admission assessment completed. See interventions.
--- NOTE | 2020-04-18 14:09 | NUR ---
BELEN SORTOPTOM AWARE OF THE NOTE SHE PUT IN ON THIS PATIENT AND WILL AMEND THE NOTE.
--- NOTE | 2020-04-18 20:10 | NUR ---
DIALYSIS NURSE TELLS THIS NURSE THAT PT RIGHT AV FISTULA SITE IS CLOTTED AND THAT DR TALLEY HAS BEEN NOTIFIED. DIALYSIS NURSE STATES THAT DR TALLEY GAVE FOLLOWING VERBAL ORDERS: PT IS IN NEED OF BEING TRANSFERRED TO [place] AND DR URBAN IS NEEDED TO BE CONSULTED. WILL NOTIFY HOSPITALIST OF THIS.
--- NOTE | 2020-04-18 20:35 | NUR ---
DR MCKENZIE NOTIFIED THAT PT IS IN NEED OF BEING TRANSFERRED TO [facility], PER DR TALLEY. DR URBAN NEEDS TO BE CONSULTED IN ORDER TO REVASCULARIZE RIGHT AV FISTULA, PER DIALYSIS NURSE AND DR TALLEY.
[2020-04-19] VITALS (17 sets, daily range): BP systolic 84–117; BP diastolic 51–71
--- NOTE | 2020-04-19 03:49 | NUR ---
ZOFRAN GIVEN FOR NAUSEA. WILL MONITOR FOR EFFECTIVENESS.
--- NOTE | 2020-04-19 04:25 | NUR ---
PT STATES THAT HE FEELS ANXIOUS ABOUT TUNNELED CATHETER PROCEDURE TODAY. DR OLIVEIRA NOTIFIED AND STATES TO GIVEN PT RESTORIL 15 MG PO. MEDICAITON GIVEN. WILL MONITOR FOR EFFECTIVENESS. CALL LIGHT IN REACH.
--- NOTE | 2020-04-19 04:47 | NUR ---
ZOFRAN IS SOMEWHAT EFFECTIVE.
--- NOTE | 2020-04-19 05:25 | NUR ---
RESTORIL EFFECTIVE. PT SLEEPING IN BED AT THIS TIME.
[2020-04-19 06:34] LABS: BASO % 0.3 % (0.0-1.0); HEMATOCRIT 33.5 % (42.0-52.0); LYMPH # 1.3 10*3/uL (1.3-4.4); MEAN CELL VOLUME 90.5 fl (80.0-94.0); MEAN CORPUSCULAR HGB 30.3 pg (27.0-31.0); MEAN CORPUSCULAR HGB CONC 33.4 g/dl (33.0-37.0); MEAN PLATELET VOLUME 10.6 fl (9.6-12.3); MONO # 1.5 10*3/uL (0.1-1.0); MONO % 11.7 % (3.0-9.0); NEUT # 9.7 10*3/uL (2.3-7.9); NEUT % 76.7 % (47.0-73.0); PLATELET COUNT AUTOMATED 312 10*3/uL (130-400); WHITE BLOOD COUNT 12.6 10*3/uL (4.8-10.8)
[2020-04-19 06:38] LABS: POTASSIUM 3.9 mmol/L (3.5-5.1)
--- NOTE | 2020-04-19 08:11 | NUR ---
Dr. Nair notified of phosphorus of 9.2
--- NOTE | 2020-04-19 08:30 | NUR ---
Dr. Quiñonez was notified of phosphorus of 9.2
--- NOTE | 2020-04-19 12:20 | NUR ---
PATIENT RETURNED FROM OR, LEFT FEMORAL DIALYSIS CATHETER IN PLACE.
--- NOTE | 2020-04-19 12:40 | NUR ---
PER DIALYSIS NURSE, SHE SPOKE WITH DR. TOBIN, WHO WANTS THE PATIENT TO GET DIALYSIS TREATMENT NOW VIA LEFT FEMORAL TEMPORARY DIALYSIS CATHETER. PATIENT TO DIALYSIS BY BED AT THIS TIME.
--- NOTE | 2020-04-19 14:22 | NUR ---
Dialysis nurse states that temporary dialysis port is not working. States that it is clogging and she is having to flush it with 30 cc of fluid frequently. States that pt is not receiving a treatment. States that Dr. Schroeder is aware and he attempted to manipulate but it is still not functioning. States that pt needs sent out, states Dr. Quiñonez is also aware she notified him. States pt needs sent to [place] to have fistula cleaned out. Pt is agreeable to transfer.
--- NOTE | 2020-04-19 14:31 | NUR ---
Dr. Nair called and states that [facility] will call when they have a bed available.
--- NOTE | 2020-04-19 14:36 | NUR ---
Updated pt son Flaco Markham at [phone] of plan for transfer to [facility] due to issues with access for dialysis.
--- NOTE | 2020-04-19 15:10 | NUR ---
Dr. Nair was to the floor and states that transfer is not going to happen today now. States that Dr. Schroeder is going to revascularize the site to pt rt arm on tuesday here at [facility]. Notified Dialysis nurse, she states she is aware and already spoke with Dr. Quiñonez. Notified pt son of this.
--- NOTE | 2020-04-19 15:50 | NUR ---
Pt transported back from dialysis to room. Pt had 2.5 hour treatment. Dialysis nurse states that pt is going to have treatment again tomorrow.
--- NOTE | 2020-04-19 17:30 | NUR ---
Pt up to bedside commode with assist of this RN. Pt is very unsteady. Pt had loose stool mixed with urine in bedside. Unable to send urine specimen. Assisted back to bed and bed alarm armed.
--- NOTE | 2020-04-19 19:45 | NUR ---
TOOK OVER CARE OF PT AT THIS TIME. PT RESTING IN BED. RESPIRATIONS UNLABORED. ASSESSMENT COMPLETE. DIALYSIS CATHETER DRESSING C/D/I WITH NO LEAKAGE NOTED. PT DENIES PAIN AND DISTRESS. WILL CONTINUE TO MONITOR. SAFETY MEASURES IN PLACE. CALL LIGHT IN REACH.
[2020-04-20] VITALS: BP 108/68
--- NOTE | 2020-04-20 01:00 | NUR ---
PT UP TO BEDSIDE COMMODE AT THIS TIME, UNSTEADY AND REQUIRING 2 STAFF MEMBERS TO HELP WITH TRANSFER. PT NOTIFIED THAT HE IS NPO AT THIS TIME FOR A POSSIBLE PROCEDURE LATER IN THE DAY. RESPIRATIONS UNLABORED. PT ASSISTED BACK TO BED. CALL LIGHT IN REACH.
[2020-04-20 07:26] LABS: BASO % 0.3 % (0.0-1.0); HEMATOCRIT 32.2 % (42.0-52.0); LYMPH # 1.2 10*3/uL (1.3-4.4); LYMPH % 11.8 % (27.0-41.0); MEAN CORPUSCULAR HGB 29.9 pg (27.0-31.0); MEAN CORPUSCULAR HGB CONC 32.9 g/dl (33.0-37.0); MEAN PLATELET VOLUME 10.5 fl (9.6-12.3); MONO # 1.2 10*3/uL (0.1-1.0); MONO % 11.6 % (3.0-9.0); NEUT # 7.7 10*3/uL (2.3-7.9); NEUT % 74.9 % (47.0-73.0); PLATELET COUNT AUTOMATED 262 10*3/uL (130-400); RED BLOOD COUNT 3.54 10*6/uL (4.50-5.90); RED CELL DISTRI WIDTH 15.5 % (0-14.5); WHITE BLOOD COUNT 10.3 10*3/uL (4.8-10.8)
[2020-04-20 07:36] LABS: POTASSIUM 3.9 mmol/L (3.5-5.1)
[2020-04-20 07:37] LABS: CREATININE 15.5 mg/dL (0.70-1.30)
[2020-04-20 08:00] VITALS: BP 99/57
[2020-04-20 12:00] VITALS: BP 107/62
[2020-04-20 16:00] VITALS: BP 91/67
[2020-04-20 20:00] VITALS: BP 87/55
--- NOTE | 2020-04-20 20:13 | NUR ---
ELECTRODES REPLACED AND MEDICAL ASSISTANT OB GYN LEADS ADJUSTED PT HAD BEEN OFF MONITOR. PT DENIES ANY NEEDS AT PRESENT TIME. WILL CONTINUE TO MONITOR. BED LEFT LOCKED IN LOW POSITION, BED ALARM INTACT, CALL LIGHT IN REACH.
[2020-04-20 20:30] VITALS: BP 92/58
--- NOTE | 2020-04-20 20:30 | NUR ---
PT PULLED UP AND REPOSITIONED IN BED BY STAFF. BP CURRENTLY 92/58 MANUALLY. PT IS CURRENTLY ALERT & ORIENTED TO PERSON, PLACE, AND TIME. DENIES ANY NEEDS. WILL MONITOR. BED LEFT LOCKED IN LOW POSITION, BED ALARM INTACT, CALL LIGHT IN REACH.
--- NOTE | 2020-04-20 21:36 | NUR ---
PT CONTINUES TO SET OFF BED ALARM AFTER BEING EDUCATED ON USING CALL LIGHT BEFORE GETTING UP OUT OF BED. PT ASSISTED TO SIT UP IN RECLINER CHAIR. PT MOVED TO ROOM 509 VIA RECLINER CHAIR IN ORDER TO BE CLOSER TO NURSES STATION. ALL BELONGINGS GATHERED AND MOVED WITH PT TO NEW ROOM. IV ZOFRAN GIVEN FOR C/O NAUSEA AND SMALL AMOUNTS OF EMESIS. WILL MONITOR EFFECTIVENESS. CALL LIGHT IN REACH. BODY ALARM INTACT. BASIN AT BEDSIDE.
--- NOTE | 2020-04-20 22:30 | NUR ---
EARLIER ZOFRAN HELPED SOME. PT STATES HE FEELS BETTER, BUT OCCASIONAL EPISODES OF NAUSEA/DRY HEAVING NOTED. WILL CONTINUE TO MONITOR. PT SITTING UP IN RECLINER CHAIR AT THIS TIME. BODY ALARM INTACT.
--- NOTE | 2020-04-20 22:58 | NUR ---
PT ASLEEP SITTING UP IN CHAIR. NO S/S OF DISTRESS NOTED. WILL MONITOR. BODY ALARM INTACT, CALL LIGHT IN REACH.
[2020-04-21] VITALS (7 sets, daily range): BP systolic 87–105; BP diastolic 42–63
--- NOTE | 2020-04-21 01:23 | NUR ---
PT REMOVED BODY ALARM STRING HIMSELF AND GOT UP OUT OF CHAIR TO BEDSIDE COMMODE. STAFF AGAIN EDUCATED PT ABOUT USING CALL LIGHT BEFORE GETTING UP. PT REPLIES "YEAH YEAH." PT HAD BOWEL MOVEMENT. CLEANED UP AND PLACED IN BED PER REQUEST. BED LEFT LOCKED IN LOW POSITION. BED ALARM INTACT. WILL MONITOR. CALL LIGHT IN REACH.
--- NOTE | 2020-04-21 05:43 | NUR ---
IV ZOFRAN GIVEN FOR C/O NAUSEA AND DRY HEAVING. WILL MONITOR. CALL LIGHT IN REACH. BED ALARM INTACT.
[2020-04-21 07:04] LABS: HEMATOCRIT 37.7 % (42.0-52.0); MEAN CELL VOLUME 90.6 fl (80.0-94.0); MEAN CORPUSCULAR HGB 29.3 pg (27.0-31.0); MEAN CORPUSCULAR HGB CONC 32.4 g/dl (33.0-37.0); MEAN PLATELET VOLUME 10.6 fl (9.6-12.3); NUCLEATED RED BLOOD CELL 0.3 % (0.0-0.0); PLATELET COUNT AUTOMATED 262 10*3/uL (130-400); RED BLOOD COUNT 4.16 10*6/uL (4.50-5.90); RED CELL DISTRI WIDTH 15.4 % (0-14.5); WHITE BLOOD COUNT 11.9 10*3/uL (4.8-10.8)
[2020-04-21 07:12] LABS: CREATININE 15.1 mg/dL (0.70-1.30); POTASSIUM 3.8 mmol/L (3.5-5.1)
[2020-04-21 10:09] LABS: PLATELET SUFFICIENCY NORMAL (NORMAL); TOTAL CELLS COUNTED 100 #CELLS
--- NOTE | 2020-04-21 14:54 | NUR ---
PATIENT MEDICATED WITH IVP ZOFRAN FOR NAUSEA AND DRY HEAVES. NO OTHER COMPLAINTS AT THIS TIME.
--- NOTE | 2020-04-21 19:54 | NUR ---
WAS TOLD IN REPORT FROM CRISTINO CHA THAT THE SHEAR SCRAPMAN AT [facility] WAS MADE AWARE OF PATIENT HAVING A POSITIVE COVID TEST AND THAT THE PATIENT WILL NOW NEED A BED ON THE COVID FLOOR.
--- NOTE | 2020-04-21 23:10 | NUR ---
SPOKE WITH MADHAV, NURSING FISH AND WILDLIFE BIOLOGIST AT [facility]. SHE STATES THAT AT THIS TIME THEY CANNOT TAKE THE PATIENT IN THE MORNING. SHE STATES THAT SHE SPOKE WITH DR URBAN AND THE SCHEDULED PROCEDURE HAS BEEN CANCELLED AT THIS TIME. SHE STATES SHE WILL CALL THEIR IMAGING AIDE AT 0700 WHEN THEY OPEN, AND AFTER SEEING IF THEY HAVE A BED ON THEIR COVID UNIT, THEY WILL CALL HERE AND LET US KNOW.
--- NOTE | 2020-04-21 23:38 | NUR ---
MEDICATED WITH PRN TYLENOL FOR ELEVATED TEMP
[2020-04-22] VITALS (7 sets, daily range): BP systolic 87–110; BP diastolic 54–77
--- NOTE | 2020-04-22 03:12 | NUR ---
medicated with prn zofran for nausea.
--- NOTE | 2020-04-22 03:51 | NUR ---
PATIENT RESTING IN BED SLEEPING. MEDICATION SEEMS EFFECTIVE
--- NOTE | 2020-04-22 06:29 | NUR ---
SPOKE WITH CHAOY FROM [facility]. SHE STATES THERE IS STILL NOT UPDATE ON THE PATIENT HAVING A COVID BED.
--- NOTE | 2020-04-22 06:32 | NUR ---
INCLINOMETER TESTER MARCELINO AWARE OF PATIENT STILL NOT HAVING A COVID BED AT [facility]
[2020-04-22 06:33] LABS: HEMATOCRIT 38.6 % (42.0-52.0); MEAN CELL VOLUME 91.9 fl (80.0-94.0); MEAN CORPUSCULAR HGB 30.5 pg (27.0-31.0); MEAN CORPUSCULAR HGB CONC 33.2 g/dl (33.0-37.0); PLATELET COUNT AUTOMATED 243 10*3/uL (130-400); RED CELL DISTRI WIDTH 15.5 % (0-14.5); WHITE BLOOD COUNT 12.3 10*3/uL (4.8-10.8)
--- NOTE | 2020-04-22 07:00 | NUR ---
ARRIVED ON SHIFT, REPORT RECEIVED FROM OFFGOING NURSE, ASSUMED CARE OF PATIENT.
--- NOTE | 2020-04-22 07:09 | NUR ---
DIALYSIS NURSE MADE AWARE OF PATIENT VOMITTING. STATES SHE WILL STILL TAKE HIM TO DIALYSIS
--- NOTE | 2020-04-22 07:30 | NUR ---
CALL PLACED TO HOSPITALIST LINE, SPOKE WITH DR. DUNN, ADVISED THAT PATIENT IS FEELING NAUSEATED, TOO SOON FOR NEXT DOSE OF ZOFRAN, HE VERSED HE WILL PUT IN ORDER FOR PHENERGEN.
[2020-04-22 07:48] LABS: BASOPHILS 1 % (0-1); TOTAL CELLS COUNTED 100 #CELLS
[2020-04-22 07:49] LABS: ACANTHOCYTES FEW; PLATELET SUFFICIENCY NORMAL (NORMAL)
[2020-04-22 07:50] LABS: POLYCHROMASIA SLIGHT
--- NOTE | 2020-04-22 07:51 | NUR ---
Shift chart check completed.
--- NOTE | 2020-04-22 07:53 | NUR ---
Shift chart check completed.
--- NOTE | 2020-04-22 09:00 | NUR ---
CALL RECEIVED FROM DR. POSADA, ORDERS RECEIVED FOR IV VANCOMYCIN 1.5GM TO START TODAY 1/2 HOUR PRIOR TO END OF DIALYSIS TODAY, CEFEPINE 500MG q 24 HOURS TO START AFTER DIALYSIS TODAY, ALSO FOR STAT BLOOD CULTURES. CALL PLACED TO PHARMACY HE WIIL ADJUST PER PHYSICIANS ORDERS.
[2020-04-22 12:09] LABS: CREATININE 6.82 mg/dL (0.70-1.30); POTASSIUM 3.5 mmol/L (3.5-5.1)
--- NOTE | 2020-04-22 15:09 | NUR ---
LEATHER CASE FINISHER ATTEMPTED TO CONTACT PATIENT VIA PHONE CALL, NO ANSWER.
--- NOTE | 2020-04-22 18:15 | NUR ---
CALLED TO PATIENTS ROOM, PATIENTS TEMP DIALYSIS CATHETER LEG WAS BLEEDING, COVERED AREA WITH 4X4 AND ABD PAD WRAPPED WITH ROLE GAUZE, SECURED WITH TAPE, SURGERY CAME TO FLOOR TO GET PATIENT FOR NEW DIALYSIS CATHETER PLANNED, THEY VERSED THEY WILL LET DR. MCDOWELL KNOW.
--- NOTE | 2020-04-22 19:24 | NUR ---
SPOKE WITH DR URBAN. HE STATES TO ORDER A CHEST XRAY, RESUME MEDS AND ANTIBIOTICS, MAY USE DIALYSIS CATHETER IF CHEST XRAY IS OK, AND TO WRAP CATHETER IN LEFT GROIN WITH SADIE WRAP AND ABD IF BLEEDING CONTINUES. STATES HE WILL TAKE THAT ONE OUT IF THE NEW ONE IS OK TO USE
--- NOTE | 2020-04-22 19:57 | NUR ---
PATIENT RETURNED FROM OR AT THIS TIME
[2020-04-23] VITALS: BP 88/58
--- NOTE | 2020-04-23 00:14 | NUR ---
patient has set bed alarm off several times. patient is confused to time and place. slow to respond. patient has tooth paste in his mouth. when asked why he is eating toothpaste he responded "it tastes good"
--- NOTE | 2020-04-23 00:47 | NUR ---
dr koch aware of patient's blood pressure and diarrhea. order for cdiff
[2020-04-23 07:31] LABS: HEMATOCRIT 33.3 % (42.0-52.0); MEAN CELL VOLUME 89.8 fl (80.0-94.0); MEAN CORPUSCULAR HGB 29.9 pg (27.0-31.0); MEAN CORPUSCULAR HGB CONC 33.3 g/dl (33.0-37.0); MEAN PLATELET VOLUME 11.2 fl (9.6-12.3); PLATELET COUNT AUTOMATED 236 10*3/uL (130-400); RED BLOOD COUNT 3.71 10*6/uL (4.50-5.90); RED CELL DISTRI WIDTH 15.5 % (0-14.5); WHITE BLOOD COUNT 11.1 10*3/uL (4.8-10.8)
[2020-04-23 08:00] VITALS: BP 144/54
[2020-04-23 08:01] LABS: CREATININE 18.6 mg/dL (0.70-1.30)
[2020-04-23 08:14] LABS: POTASSIUM 4.6 mmol/L (3.5-5.1)
[2020-04-23 08:17] LABS: BURR CELLS FEW; POLYCHROMASIA SLIGHT; SPHEROCYTES FEW; TOTAL CELLS COUNTED 100 #CELLS
[2020-04-23 08:18] LABS: PLATELET SUFFICIENCY NORMAL (NORMAL)
--- NOTE | 2020-04-23 08:20 | NUR ---
LAB CALLED WITH CRITICAL BUN AND PHOS. DR DIAZ NOTIFIED, ORDERS RECEIVED TO NOTIFY NEPHRO ALSO TO CALL [facility] RE: CXR FROM YESTERDAY.
--- NOTE | 2020-04-23 08:22 | NUR ---
[facility] CALLED RE: CXR READ. REPRESENTIVE STATES SHE WILL PASS ALONG TO THE DR'S TO READ IT.
--- NOTE | 2020-04-23 08:27 | NUR ---
CALLED DR POSADA ANSWERING SERVICE. RE: CRITICAL LAB. WILL AWAIT RETURN CALL.
--- NOTE | 2020-04-23 08:45 | NUR ---
SPOKE WITH DR OCHOA (NEPHRO)RE: LABS REVIEWED AND STATES SHE WILL BE IN SOON
--- NOTE | 2020-04-23 09:15 | NUR ---
NASAL SWAB COLLECTED FOR COVID 19 TESTING AND SENT TO LAB.
--- NOTE | 2020-04-23 10:40 | NUR ---
DR OCHOA ON UNIT, LAB REVIEWED AND ORDERS RECEIVED.
--- NOTE | 2020-04-23 10:54 | NUR ---
Attempted to reach nursing bulk plant supervisor at [facility] with no success. Will try again at a later time regarding bed availability.
[2020-04-23 11:32] LABS: ALBUMIN 2.8 gm/dl (3.1-4.5); CREATININE 19.1 mg/dL (0.70-1.30); POTASSIUM 4.9 mmol/L (3.5-5.1)
--- NOTE | 2020-04-23 11:54 | NUR ---
LAB CALLED WITH CRITICAL BUN AND PHOS. DR POSADA OFFICE CALLED AND NOTIFIED. WILL AWAIT RETURN CALL.
[2020-04-23 12:00] VITALS: BP 121/83
--- NOTE | 2020-04-23 12:07 | NUR ---
DR OCHOA NOTIFIED OF CRITICAL LABS. SHE STATES PT IS TO HAVE DIALYSIS TODAY SHE WILL CALL THE NURSE TO NOTIFY HER.
--- NOTE | 2020-04-23 12:10 | NUR ---
DR URBAN CALLED UNIT. NOTIFIED CXR WAS NOT AVAILABLE STILL FROM YESTERDAY. THAT I CALLED [facility]. HE STATES [facility] IS IN GOOD POSITION AND OK TO USE. UPDATED ON STATUS. HE STATES HE WOULD REMOVE THE TEMP SITE FROM THE GROIN NEXT WEEK.
--- NOTE | 2020-04-23 14:42 | NUR ---
SISTER CALLED AND NOTIFIED OF STATUS, SHE STATES UNDERSTANDING.
[2020-04-23 16:00] VITALS: BP 122/51
--- NOTE | 2020-04-23 17:05 | NUR ---
OFF UNIT TO DIALYSIS.
--- NOTE | 2020-04-23 19:00 | NUR ---
DIALYSIS NURSE CALLED OVER AND STATED PATIENT WAS CRAWLING OUT OF BED AND ACTING "WEIRD".
[2020-04-23 19:27] VITALS: BP 99/43
--- NOTE | 2020-04-23 19:34 | NUR ---
ATTEMPTED TO GET AHOLD OF RESPIRATORY REGARDING STAT EKG AND ABG'S WITH NO ANSWER
[2020-04-23 20:00] VITALS: BP 100/56
--- NOTE | 2020-04-23 20:41 | NUR ---
ATTEMPTED TO CALL CRITICAL LABS TO RESIDENT WITH NO ANSWER
--- NOTE | 2020-04-23 20:48 | NUR ---
DR LOZA AWARE OF TROPONIN, LACTIC ACID, AND D DIMER.
--- NOTE | 2020-04-23 21:54 | NUR ---
DR OLIVEIRA ON FLOOR AND AWARE OF HEART RATE. STATES TO CALL DR POSADA
--- NOTE | 2020-04-23 21:58 | NUR ---
DR POSADA'S ANSWERING SERVICE PAGING WHO IS PHARMACY OPERATIONS COORDINATOR AT THIS TIME
--- NOTE | 2020-04-23 22:05 | NUR ---
DR ANAYA AWARE OF PATIENT'S CONDITION. HE STATES THAT THE PATIENT WILL NEED 250CC BOLUS' IN INCREMENTS UP TO 1 LITER, AND IF HIS HEART RATE AND BLOOD PRESSURE DOES NOT IMPROVE, THEN "THEY NEED TO THINK OF SOMETHING ELSE". HE WAS MADE AWARE THAT THE PATIENT IS COVID POSITIVE. HE STATES "OK". DR LOZA MADE AWARE OF DR ANAYAS RECOMENDATION AND STATES "HE IS COVID POSITIVE AND WE CANNOT GIVE FLUIDS. I WILL TALK WITH DR OLIVEIRA AND LET YOU KNOW WHAT WE WILL DO".
--- NOTE | 2020-04-23 22:40 | NUR ---
MEDICATED WITH PRN ZOFRAN FOR C/O NAUSEA
--- NOTE | 2020-04-23 23:14 | NUR ---
ATTEMPTED TO CALL RESIDENT REGARDING CRITICAL LAB
--- NOTE | 2020-04-23 23:44 | NUR ---
DR LOZA AWARE OF LACTIC ACID AND TROPONIN
[2020-04-24] VITALS: BP 117/69
--- NOTE | 2020-04-24 01:22 | NUR ---
DR LOZA AWARE IF PATIENT'S RECENT BLOOD PRESSURE AND HEART RATE
[2020-04-24 04:00] VITALS: BP 107/54
[2020-04-24 06:47] LABS: ALBUMIN 2.8 gm/dl (3.1-4.5); CREATININE 14.1 mg/dL (0.70-1.30)
[2020-04-24 08:00] VITALS: BP 102/67
--- NOTE | 2020-04-24 08:00 | NUR ---
Spoke to nursing meat supervisor at [facility]. They are not able to take patient. Notified Dr. Stallworth.
--- NOTE | 2020-04-24 08:08 | NUR ---
Director Camp spoke to patient via phone. Patient states lives at home with his father and sister. There are 12 steps in the home. Physician: no family physician [facility]acy: [facility] Home health services: would like [facility] on discharge Patient's level of ADLs: INDEPENDENT Patient has working utilities: yes DME: none Follow-up physician's appointment after d/c: will be made by the hospitalist nurse director upon discharge Does patient want to access PORTAL?: no Discharge plan discussed with patient. He lives at home with his father and sister. He states he is independent in his ADLs and ambulation. Discussed short term rehab and he refuses. Discussed if he was able to go home and take care of himself and he said he would try. Informed it would be a good idea to go to a rehab for a short time to get stronger prior to going home. He continues to refuse rehab. Discussed home health care services and he is agreeable. When provided with a list of agencies he chose [facility]. When medically stable he will be discharged to home with [facility] services. He states his sister will provide transportation on discharge. LISETH RECINOS
[2020-04-24 12:00] VITALS: BP 100/65
--- NOTE | 2020-04-24 15:39 | NUR ---
DR URBAN CALLED RE: TESSIO FUNCTION R/T TO [facility]. HE SPOKE WITH DIALYSIS NURSE. WE AGAIN SPOKE ABOUT DIALYSIS CATH IN [facility]. HE STATES THAT IT IS A PERMANANT TUNNEL CATH AND HE WILL REMOVE IT TUESDAY OR TUESDAY.
[2020-04-24 16:00] VITALS: BP 126/75
[2020-04-24 20:00] VITALS: BP 104/58
--- NOTE | 2020-04-25 06:31 | NUR ---
Shift chart check completed.
[2020-04-25 06:43] LABS: HEMATOCRIT 34.7 % (42.0-52.0); MEAN CELL VOLUME 91.6 fl (80.0-94.0); MEAN CORPUSCULAR HGB 30.1 pg (27.0-31.0); MEAN CORPUSCULAR HGB CONC 32.9 g/dl (33.0-37.0); MEAN PLATELET VOLUME 11.6 fl (9.6-12.3); NUCLEATED RED BLOOD CELL 0.2 % (0.0-0.0); PLATELET COUNT AUTOMATED 232 10*3/uL (130-400); RED BLOOD COUNT 3.79 10*6/uL (4.50-5.90); RED CELL DISTRI WIDTH 15.6 % (0-14.5); WHITE BLOOD COUNT 14.3 10*3/uL (4.8-10.8)
[2020-04-25 07:21] LABS: ALBUMIN 2.8 gm/dl (3.1-4.5); CREATININE 11.7 mg/dL (0.70-1.30); POTASSIUM 4.4 mmol/L (3.5-5.1); TOTAL PROTEIN 7.6 gm/dL (6.4-8.2)
[2020-04-25 08:00] VITALS: BP 136/86
[2020-04-25 08:07] LABS: HEP B CORE AB TOTAL Negative (Negative); HEPATITIS B SURFACE AB Reactive (.); HEPATITIS B SURFACE AG Negative (Negative); HEPATITIS C AB <0.1 (0.0-0.9)
[2020-04-25 08:31] LABS: PLATELET SUFFICIENCY NORMAL (NORMAL); SCHISTOCYTES FEW; TOTAL CELLS COUNTED 100 #CELLS
[2020-04-25 12:00] VITALS: BP 93/53
--- NOTE | 2020-04-25 13:00 | NUR ---
LATE ENTRY CALL PLACED TO DR. URBAN TO ASK IF PATIENT TEMPORARY DIALYSIS CATHETER CAN BE REMPOVED OUT PATIENT, LEFT MESSAGE FOR CALL BACK.
[2020-04-25 16:00] VITALS: BP 96/63
--- NOTE | 2020-04-25 19:34 | NUR ---
CALL PLACED TO HOSPITALIST LINE TO REPORT POSSITIVE BLOOD CULTURES OF AEROBIC BC GRAM + COCCI IN CLUSTER, NO ANSWER, LEFT MESSSAGE FOR CALL BACK.
[2020-04-25 20:00] VITALS: BP 101/61
--- NOTE | 2020-04-25 20:55 | NUR ---
INTO ASSESS PATIENT AND GIVE NIGHT TIME MEDICATIONS. PATIENT LAYING IN BED WATCHING STEPHEN. PATIENT VERY WITHDRAWN. NOT WANTING TO ENGAGE IN MUCH CONVERSATION. PATIENT VOICES NO COMPLAINTS/NEEDS AT THIS TIME. JUST STATES HE WANTS OUT OF THE HOSPITAL. RESPIRATIONS EASY, NON LABORED. VSS. MOIST COUGH NOTED. BED IN LOWEST POSITION, CALL LIGHT WITHIN REACH. BED ALARM ON. WILL CONTINUE TO MONITOR.
[2020-04-26] VITALS: BP 96/54
--- NOTE | 2020-04-26 04:00 | NUR ---
PATIENT SET OF BED ALARM. BEFORE THIS NURSE COULD GET INTO ROOM. PATIENT SLID HIMSELF DOWN TO THE GROUND AND LAID ON FLOOR PURPOSELY. ASKED PATIENT WHAT HE WAS DOING. PATIENT JUST STARED AND DID NOT ANSWER. HELPED PATIENT BACK INTO BED. PATIENT VERY CONFUSED, SLOW TO RESPONE. PATIENT SEEMS WORSE OFF THEN PRIOR NIGHTS. NOTIFIED DR. LOZA. BRIDGETT ORDERED STAT.
[2020-04-26 04:21] LABS: ARTERIAL BLOOD GAS PH 7.399 (7.35-7.45)
[2020-04-26 04:22] LABS: ABG BASE EXCESS -9.4 mmol/L (-2.0-2.0)
--- NOTE | 2020-04-26 04:27 | NUR ---
NOTIFIED DR. LOZA OF PATIENTS ABG RESULTS. STATES IF PATIENT WORSENS TO CONSULT AZIZ.UNTIL THEN KEEP PATIENT ABOVE 92% WILL CONTINUE TO MONITOR
--- NOTE | 2020-04-26 06:00 | NUR ---
PATIENT FOUND TO HAVE O2 OFF AGAIN. PULSE OX CHECKED, IN THE 70'S. PLACED BACK ON HIS 5L NASAL CANNULA. UNABLE TO GET PATIENT ABOVE 80%, OXYGEN TITRATED UP. ON 15L HIGH FLOW. RESPIRATORY IN ROOM. NOTIFIED DR. LOZA. NO NEW ORDERS RECEIVED. STATES SHE WILL REVIEW HIS CHART. WILL CONTINUE TO MONITOR.
--- NOTE | 2020-04-26 07:12 | NUR ---
Shift chart check completed.
[2020-04-26 08:00] VITALS: BP 104/56
[2020-04-26 12:00] VITALS: BP 108/46
[2020-04-26 13:52] LABS: ARTERIAL BLOOD GAS PH 7.488 (7.35-7.45)
--- NOTE | 2020-04-26 14:06 | NUR ---
DR. CUETO NOTIFIED OF CONSULT.
--- NOTE | 2020-04-26 14:21 | NUR ---
CALL PLACED TO DR. FARLEY ADVISED THAT DIALYSIS NURSE HAD TO USE TEMPERARY DIALYSIS CATHETER.
--- NOTE | 2020-04-26 15:23 | NUR ---
SPOKE TO DR. URBAN, HE VERSED THAT THE DIALYSIS CATHETER LEFT UPPER LEG COULD BE REMOVED OUT PATIENT, ADVISED DR. URBAN THAT PER DIALYSIS NURSE SHE WAS UNABLE DIALYZE PATIENT THERE WAS TO MUCH PRESSURE.
--- NOTE | 2020-04-26 15:28 | NUR ---
NOTIFIED DR. FARLEY OF [place] TO REMOVE DIALYSIS CATHETER OUTPAINT, ALSO ADVISED THAT PATIENT WAS UNABL TO BE DIALYZED TODAY.
--- NOTE | 2020-04-26 15:32 | NUR ---
DR. CUETO ADVISED PATIENT IS BEING TRANSFERED TO ICU.
--- NOTE | 2020-04-26 15:35 | NUR ---
NOTIFIED DR. HALE THAT PATIENT WILL BE TRANSFERING TO ICU PER DR. CUETO, DR. HALE REQUESTS HEPARIN DRIP TO START AFTER PATIENT TRANSFERS TO ICU.
[2020-04-26 16:00] VITALS: BP 96/69
--- NOTE | 2020-04-26 19:50 | NUR ---
TRANSFERRED TO ICU5 PER ORDER WITH BELONGINGS.
[2020-04-26 20:00] VITALS: BP 100/65
--- NOTE | 2020-04-26 20:51 | NUR ---
PT. RESTING IN BED. IV RESTARTED IN LEFT HAND AND LWRIST HEP LOCK REMOVED DUE TO INABILITY TO FLUSH. LEFT THIGH TESSIO, RIGHT UPPER ARM FISTULA AND TESSIO IN RIGHT CHEST ASYMPT. LUNGS DIMINISHED BILAT, PULSE OX 100% ON 60% BIPAP. PT. REMOVING CONSTANTLY. SLOW TO RESPOND. NO PERIPHERAL EDEMA NOTED. RESP. EASY AND REG AT REST, SOB NOTED WITH MINIMAL EXERTION. WILLIAM HINTON RN
[2020-04-26 22:32] LABS: HEMATOCRIT 27.3 % (42.0-52.0); MEAN CELL VOLUME 91.3 fl (80.0-94.0); MEAN CORPUSCULAR HGB 29.8 pg (27.0-31.0); MEAN CORPUSCULAR HGB CONC 32.6 g/dl (33.0-37.0); MEAN PLATELET VOLUME 11.4 fl (9.6-12.3); NUCLEATED RED BLOOD CELL 0.1 % (0.0-0.0); RED BLOOD COUNT 2.99 10*6/uL (4.50-5.90); RED CELL DISTRI WIDTH 15.3 % (0-14.5); WHITE BLOOD COUNT 20.2 10*3/uL (4.8-10.8)
[2020-04-26 22:48] LABS: ALBUMIN 2.4 gm/dl (3.1-4.5); CREATININE 14.2 mg/dL (0.70-1.30); POTASSIUM 5.3 mmol/L (3.5-5.1); TOTAL PROTEIN 6.7 gm/dL (6.4-8.2)
[2020-04-26 22:54] LABS: PLATELET COUNT AUTOMATED 302 10*3/uL (130-400)
[2020-04-26 23:00] LABS: ATYPICAL LYMPHS 1 % (0-0); PLATELET SUFFICIENCY NORMAL (NORMAL); TOTAL CELLS COUNTED 100 #CELLS
[2020-04-26 23:01] LABS: SCHISTOCYTES FEW
--- NOTE | 2020-04-26 23:22 | NUR ---
HAVE PUT BIPAP BACK ON PATIENT 35+TIMES SINCE BEING TRANSFERRED TO ICU. TALKED W HOSPITALIST REGARDING SOMETHING TO HELP PATIENT RELAX TO HELP TOLERATE BIPAP. WILLIAM HINTON RN
--- NOTE | 2020-04-26 23:49 | NUR ---
PT. GIVEN ATIVAN ORDERED AT 2348 FOR RESTLESSNESS AND INABILITY TO TOLERATE BIPAP. WILL CONTINUE TO MONITOR.
[2020-04-27] VITALS: BP 116/77
--- NOTE | 2020-04-27 02:18 | NUR ---
PT. SLEPT FOR APPROX 10MIN BEFORE DISMANTLING BIPAP MULTIPLE TIMES AGAIN. INSTRUCTED TO LEAVE BIPAP ON AND DO NOT TOUCH. PT. REMAINS UNCOOPERATAIVE WITH CARE. BIPAP PLACED BACK ON PT. MULTIPLE TIMES AN HOUR. WILLIAM HINTON RN
[2020-04-27 04:00] VITALS: BP 133/79
[2020-04-27 04:15] LABS: MEAN CELL VOLUME 90.3 fl (80.0-94.0); MEAN CORPUSCULAR HGB 30.2 pg (27.0-31.0); MEAN CORPUSCULAR HGB CONC 33.5 g/dl (33.0-37.0); MEAN PLATELET VOLUME 11.5 fl (9.6-12.3); NUCLEATED RED BLOOD CELL 0.1 % (0.0-0.0); PLATELET COUNT AUTOMATED 292 10*3/uL (130-400); RED BLOOD COUNT 2.88 10*6/uL (4.50-5.90); RED CELL DISTRI WIDTH 15.2 % (0-14.5); WHITE BLOOD COUNT 20.8 10*3/uL (4.8-10.8)
[2020-04-27 04:33] LABS: ALBUMIN 2.4 gm/dl (3.1-4.5); CREATININE 15.3 mg/dL (0.70-1.30); POTASSIUM 4.8 mmol/L (3.5-5.1); TOTAL PROTEIN 6.7 gm/dL (6.4-8.2)
--- NOTE | 2020-04-27 04:44 | NUR ---
PT'S BIPAP PLACED BACK ON PATIENT 10-20 TIMES PER 1/2/HR. PT. DISMANTLING BIPAP CONTINUOUSLY. NONREBREATHER PLACED ON PATIENT DUE TO PATIENTS REFUSAL TO WEAR BIPAP. WILLIAM HINTON RN
[2020-04-27 04:57] LABS: TOTAL CELLS COUNTED 100 #CELLS
[2020-04-27 04:58] LABS: BURR CELLS FEW; OVALOCYTES FEW; PLATELET SUFFICIENCY NORMAL (NORMAL)
--- NOTE | 2020-04-27 05:29 | NUR ---
PTT. 139, HEPARIN HELD FOR 1HR AND DECREASED 3UNITS/HR WILLIAM HINTON RN
--- NOTE | 2020-04-27 05:40 | NUR ---
PT. REPEATEDLY PULLING OFF NONREBREATHER. EXPLAINED TO PATIENT AT LEAST 50 TIMES THE NEED TO WEAR 02 (BIPAP OR OTHERWISE) AND POSSIBILITY OF INTUBATION. WILLIAM HINTON RN
--- NOTE | 2020-04-27 07:36 | NUR ---
Shift chart check completed.24 HR chart check completed.
[2020-04-27 08:00] VITALS: BP 106/76
[2020-04-27 09:32] LABS: ARTERIAL BLOOD GAS PH 7.379 (7.35-7.45)
[2020-04-27 09:33] LABS: ABG BASE EXCESS -9.2 mmol/L (-2.0-2.0)
--- NOTE | 2020-04-27 09:36 | NUR ---
ON ASSESSMENT PATIENT PATIENT ALERT, COOPERATIVE. MOSTLY NON-VERBAL. WITH GESTURING I GOT HIM TO TAKE HIS PO MEDS. HE ATE ABOUT 25% OF HIS BREAKFAST. HE'S CURLED ONTO HIS SIDE, WEARING HIGH FLOW NASAL CANNULA AT 15L/MIN. DIALYSIS NURSE HERE IN BUILDING. LAB CALLED WITH HIGH PHOSPHOROUS LEVEL, PLANS FOR DIALYSIS. HEPARIN DRIP CONTINUES AT 1500 UNITS/HR. SEE ALL APPROPRIATE INTERVENTIONS.
[2020-04-27 12:00] VITALS: BP 119/38
--- NOTE | 2020-04-27 13:21 | NUR ---
DIALYSIS NURSE SHOWED ME THE LEFT FEMEROL DIALYSIS CATHETER HAS PULLED OUT SOME. THE SUTURES ARE INTACT BUT THE CUFF IS VISIBLE. SHE SAID SHE TALKED WITH DR URBAN. SHE APPLIED A NEW DRESSING. DIALYSIS RAN BETTER TODAY THAN YESTERDAY. DIALYSIS NURSE IS ALSO INSTILLING CATHFLO IN ALL 4 PORTS OF TWO HEMODIALYSIS CATHETERS.
[2020-04-27 16:00] VITALS: BP 101/58
[2020-04-27 19:58] VITALS: BP 93/57
[2020-04-28] VITALS: BP 102/43
--- NOTE | 2020-04-28 02:30 | NUR ---
PATIENT RIPPED IV OUT STATING HE WAS GOING TO GO FOR A AWALK PATIENTS GOWN AND BED CHANGED FOR THE 2ND TIME TONIGHT. PATIENT HAS BEEN TAKING O2 OFF ALL NIGHT LONG.
[2020-04-28 03:53] LABS: MEAN CELL VOLUME 91.2 fl (80.0-94.0); MEAN CORPUSCULAR HGB 30.2 pg (27.0-31.0); MEAN CORPUSCULAR HGB CONC 33.1 g/dl (33.0-37.0); MEAN PLATELET VOLUME 11.3 fl (9.6-12.3); NUCLEATED RED BLOOD CELL 0.1 10*3/uL (0.0-0.0); NUCLEATED RED BLOOD CELL 0.3 % (0.0-0.0); PLATELET COUNT AUTOMATED 323 10*3/uL (130-400); RED BLOOD COUNT 2.85 10*6/uL (4.50-5.90); RED CELL DISTRI WIDTH 15.3 % (0-14.5); WHITE BLOOD COUNT 25.2 10*3/uL (4.8-10.8)
[2020-04-28 04:00] VITALS: BP 105/61
[2020-04-28 04:08] LABS: ALBUMIN 2.5 gm/dl (3.1-4.5); CREATININE 9.93 mg/dL (0.70-1.30); POTASSIUM 5.6 mmol/L (3.5-5.1)
[2020-04-28 04:16] LABS: ATYPICAL LYMPHS 1 % (0-0); TOTAL CELLS COUNTED 100 #CELLS
[2020-04-28 04:17] LABS: PLATELET SUFFICIENCY NORMAL (NORMAL)
[2020-04-28 04:18] LABS: BURR CELLS FEW; OVALOCYTES FEW
[2020-04-28 08:00] VITALS: BP 103/69
[2020-04-28 12:00] VITALS: BP 117/72
[2020-04-28 13:49] LABS: ARTERIAL BLOOD GAS PH 7.423 (7.35-7.45)
[2020-04-28 16:00] VITALS: BP 111/70
--- NOTE | 2020-04-28 16:00 | NUR ---
HE CALLED SISTER FOR PEDIALYTE. THIS WAS BROUGHT INTO ROOM. HE GETS UP INTO POSITION IN BED AND JUST STARRES OFF AT CUP AND STRAW.
--- NOTE | 2020-04-28 18:25 | NUR ---
PULSE OX DROPPED TO 70% ON 8L HIGH FLOW. O2 INCREASED TO 15. PULSE OX INCREASED TO 88%
[2020-04-28 19:07] LABS: ABG BASE EXCESS -3.7 mmol/L (-2.0-2.0); ARTERIAL BLOOD GAS PH 7.445 (7.35-7.45)
[2020-04-28 20:00] VITALS: BP 117/81
--- NOTE | 2020-04-28 21:52 | NUR ---
DR LOZA NOTIFIED OF PT GETTING OOB, TAKING OXYGEN OFF, DRINKING POP THAN SPITTING IT OUT IN TRASH CAN, ASSUMES POSITION ON HANDS AND KNEES, EMOTIONAL SUPPORT GIVEN, DR LOZA WILL BE IN TO SEE PATIENT
[2020-04-29] VITALS: BP 138/83
[2020-04-29 07:47] LABS: HEMATOCRIT 26.5 % (42.0-52.0); MEAN CORPUSCULAR HGB 31.2 pg (27.0-31.0); MEAN CORPUSCULAR HGB CONC 33.2 g/dl (33.0-37.0); MEAN PLATELET VOLUME 11.4 fl (9.6-12.3); NUCLEATED RED BLOOD CELL 0.1 10*3/uL (0.0-0.0); NUCLEATED RED BLOOD CELL 0.6 % (0.0-0.0); PLATELET COUNT AUTOMATED 240 10*3/uL (130-400); RED BLOOD COUNT 2.82 10*6/uL (4.50-5.90); RED CELL DISTRI WIDTH 15.3 % (0-14.5); WHITE BLOOD COUNT 20.7 10*3/uL (4.8-10.8)
[2020-04-29 08:20] LABS: ALBUMIN 2.4 gm/dl (3.1-4.5); CREATININE 13.4 mg/dL (0.70-1.30); TOTAL PROTEIN 6.6 gm/dL (6.4-8.2)
[2020-04-29 08:27] LABS: ATYPICAL LYMPHS 1 % (0-0); BURR CELLS FEW; OVALOCYTES FEW; PLATELET SUFFICIENCY NORMAL (NORMAL); POLYCHROMASIA SLIGHT; SCHISTOCYTES FEW; TOTAL CELLS COUNTED 100 #CELLS
[2020-04-29 08:55] LABS: POTASSIUM 6.8 mmol/L (3.5-5.1)
[2020-04-29 12:00] VITALS: BP 117/83
[2020-04-29 14:56] LABS: ALBUMIN 2.5 gm/dl (3.1-4.5); CREATININE 7.41 mg/dL (0.70-1.30); TOTAL PROTEIN 6.9 gm/dL (6.4-8.2)
--- NOTE | 2020-04-29 15:00 | NUR ---
O2 TITRATED DOWN TO 12L HIGH FLOW NASAL CANNULA. PULSE OX 96%. REMAINS RESTLESS, AT TIMES GETTING UP IN A POSITION IN BED. VITALS REMAIN STABLE.
[2020-04-29 15:05] LABS: POTASSIUM 5.5 mmol/L (3.5-5.1)
[2020-04-29 16:00] VITALS: BP 108/77
--- NOTE | 2020-04-29 19:03 | NUR ---
MESSAGE LEFT WITH DR. URBAN REGARDING NEED TO CALL [facility] REGARDING REMOVAL OF LEFT THIGH DIALYSIS CATHETER
[2020-04-29 20:00] VITALS: BP 145/41
[2020-04-30] VITALS: BP 108/60
[2020-04-30 04:00] VITALS: BP 116/69
--- NOTE | 2020-04-30 05:52 | NUR ---
PATIENT REFUSING TO LEAVE GOWN ON AT ALL THROUGH OUT THE NIGHT. PATIENT ALSO WAS INCONT OF STOOL X1 DARK AND SOLID PATIENT WAS COVER ED IN FECES SO PATIENT HAD A BATH AND BED CHANGE AT THIS TIME.
[2020-04-30 06:03] LABS: HEMATOCRIT 23.3 % (42.0-52.0); MEAN CELL VOLUME 94.7 fl (80.0-94.0); MEAN CORPUSCULAR HGB 30.5 pg (27.0-31.0); MEAN CORPUSCULAR HGB CONC 32.2 g/dl (33.0-37.0); NUCLEATED RED BLOOD CELL 0.2 10*3/uL (0.0-0.0); NUCLEATED RED BLOOD CELL 1.1 % (0.0-0.0); PLATELET COUNT AUTOMATED 227 10*3/uL (130-400); RED BLOOD COUNT 2.46 10*6/uL (4.50-5.90); WHITE BLOOD COUNT 21.5 10*3/uL (4.8-10.8)
[2020-04-30 06:30] LABS: ALBUMIN 2.6 gm/dl (3.1-4.5)
[2020-04-30 06:44] LABS: CREATININE 9.81 mg/dL (0.70-1.30); TOTAL PROTEIN 6.6 gm/dL (6.4-8.2)
[2020-04-30 06:48] LABS: POTASSIUM 6.4 mmol/L (3.5-5.1)
[2020-04-30 07:33] LABS: TOTAL CELLS COUNTED 100 #CELLS
[2020-04-30 07:34] LABS: PLATELET SUFFICIENCY NORMAL (NORMAL); POLYCHROMASIA SLIGHT
[2020-04-30 08:00] VITALS: BP 112/72
--- NOTE | 2020-04-30 08:00 | NUR ---
CONTINUES TO BE RESTLESS, REMOVING O2, SITTING AT SIDE OF BED. ENCOURGED TO LEAVE NASAL O2 ON. PATIENT REPOSTIONED. VSS. REMAINS SOB AT REST. PULSE OX 91%. WILL NO LEAVE HOSPITAL GOWN ON. BREAKFAST OFFERED BUT REFUSED. ALMAS COLESRN
[2020-04-30 12:00] VITALS: BP 133/83
--- NOTE | 2020-04-30 12:00 | NUR ---
ENCOURGED TO EAT LUNCH...ATE VERY LITTLE APPROX 20%. RECOMES VERY SOB WITH EATING. ALMAS COLESRN
--- NOTE | 2020-04-30 12:30 | NUR ---
MUSHY DK LOOSE STOOL NOTED. STOOL SENT FOR OC BLOOD ORDERED. ALMAS COLES RN
--- NOTE | 2020-04-30 14:00 | NUR ---
PT RECEIVING DIALYSIS AT BEDSIDE. VSS REMAIN STABLE. PT CONTINUES TO BE RESTLESS. ALMAS COLES RN
[2020-04-30 16:00] VITALS: BP 108/74
[2020-04-30 20:00] VITALS: BP 104/80
[2020-05-01] VITALS (42 sets, daily range): BP systolic 54–137; BP diastolic 40–109
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
[2020-05-01 06:05] LABS: ALBUMIN 2.6 gm/dl (3.1-4.5); CREATININE 7.98 mg/dL (0.70-1.30); TOTAL PROTEIN 6.9 gm/dL (6.4-8.2)
[2020-05-01 06:08] LABS: HEMATOCRIT 24.9 % (42.0-52.0); MEAN CELL VOLUME 96.9 fl (80.0-94.0); MEAN CORPUSCULAR HGB 31.5 pg (27.0-31.0); MEAN CORPUSCULAR HGB CONC 32.5 g/dl (33.0-37.0); MEAN PLATELET VOLUME 12.3 fl (9.6-12.3); NUCLEATED RED BLOOD CELL 0.4 10*3/uL (0.0-0.0); PLATELET COUNT AUTOMATED 187 10*3/uL (130-400); RED BLOOD COUNT 2.57 10*6/uL (4.50-5.90); RED CELL DISTRI WIDTH 15.5 % (0-14.5); WHITE BLOOD COUNT 21.3 10*3/uL (4.8-10.8)
[2020-05-01 06:32] LABS: TOTAL CELLS COUNTED 100 #CELLS
[2020-05-01 06:33] LABS: OVALOCYTES FEW; PLATELET SUFFICIENCY NORMAL (NORMAL); POLYCHROMASIA SLIGHT; SCHISTOCYTES FEW
[2020-05-01 06:34] LABS: POTASSIUM 6.4 mmol/L (3.5-5.1)
--- NOTE | 2020-05-01 07:34 | NUR ---
Shift chart check completed.
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
--- NOTE | 2020-05-01 09:42 | NUR ---
GUNNER MATE FAXED REFERRAL TO [facility] FOR REVIEW.
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
[2020-05-01 11:33] LABS: ABG BASE EXCESS 5.6 mmol/L (-2.0-2.0); ARTERIAL BLOOD GAS PH 7.601 (7.35-7.45)
--- NOTE | 2020-05-01 14:30 | NUR ---
Infomed consent obtained from family by Dr. CUETO for elective intubation. Patient intubated with 8 Divehi endotracheal tube orally X 1 attempts. Patient sedated with DIPRIVAN , KETAMINE Respiratory therapy at bedside. Crash cart with emergency drugs available. Endotracheal tube inflated with 10cc's. Lungs auscultated for equality of breath sounds. Tube secured with Head gear at 25cm's. at level of LIP. Patient tolerated procedure FAIR. Portable chest X-ray obtained and reviewed for tube placement. Patient connected to ventilator CMV mode RATE 20, 450 tidal volume, 80 FIO2, 8 PEEP, and 0 pressure support. LEFT ARTLINE PLACED & LIJ-MLC PLACED WITHOUT DIFFICULTY. #16 OGT PLACED & CONFIRMED WITH AIR BOLUS THEN CXR..#16 VIGIL PLACED WITHOUT DIFFICULTY BUT NOT INFLATED NO URINE OUTPUT. TAPED IN PLACE ANGELA DOMÍNGUEZ
--- NOTE | 2020-05-01 14:30 | NUR ---
PT WAS INTUBATED ,450, 20, 100%, +8. SPO2 100%. TITRATED FIO2 TO 80%. PT TOLERATING WELL.
[2020-05-01 16:56] LABS: ABG BASE EXCESS 3.3 mmol/L (-2.0-2.0); ARTERIAL BLOOD GAS PH 7.374 (7.35-7.45)
--- NOTE | 2020-05-01 17:30 | NUR ---
NEW RIJ-MLC PLACED AFTER LIJ-MLC NOT IN BEST POSITION & DIFFICULTY VIEWING VEIN TO REPOSITION. STAT CXR ORDERED
[2020-05-01 19:23] LABS: ABG BASE EXCESS 4.7 mmol/L (-2.0-2.0); ARTERIAL BLOOD GAS PH 7.463 (7.35-7.45)
--- NOTE | 2020-05-01 23:00 | NUR ---
Patient maxed out levophed blood pressure map running 60-65. Diprivan gtt lowered to try and bring up with no results. Patient became more restless and agitated. Notified Dr. Clement for order for vasopressin and he stated there is no need to call, should already know to order vaso once levo is maxed, in which I was not aware.
[2020-05-02] VITALS (44 sets, daily range): BP systolic 51–125; BP diastolic 40–83
--- NOTE | 2020-05-02 01:00 | NUR ---
Vassopressin started for a steady map of 60. Will monitor and titrate as needed.
[2020-05-02 06:23] LABS: HEMATOCRIT 22.9 % (42.0-52.0); MEAN CELL VOLUME 98.3 fl (80.0-94.0); MEAN CORPUSCULAR HGB 31.8 pg (27.0-31.0); MEAN CORPUSCULAR HGB CONC 32.3 g/dl (33.0-37.0); MEAN PLATELET VOLUME 12.8 fl (9.6-12.3); NUCLEATED RED BLOOD CELL 12.7 % (0.0-0.0); NUCLEATED RED BLOOD CELL 3.4 10*3/uL (0.0-0.0); PLATELET COUNT AUTOMATED 210 10*3/uL (130-400); RED BLOOD COUNT 2.33 10*6/uL (4.50-5.90); RED CELL DISTRI WIDTH 16.4 % (0-14.5)
[2020-05-02 06:48] LABS: ALBUMIN 2.5 gm/dl (3.1-4.5); CREATININE 7.23 mg/dL (0.70-1.30); TOTAL PROTEIN 6.7 gm/dL (6.4-8.2)
[2020-05-02 06:56] LABS: TOTAL CELLS COUNTED 100 #CELLS
[2020-05-02 06:57] LABS: PLATELET SUFFICIENCY NORMAL (NORMAL); POLYCHROMASIA SLIGHT
--- NOTE | 2020-05-02 08:00 | NUR ---
AM ASSESSMENT DONE. PATIENT UNREPONSIVE. DIPROVAN OFF D/T: HYPOTENSION. LEVOPRED AND VASOPRESSIN INCREASED TO MAX DOSE. ALMAS COLES RN
[2020-05-02 08:29] LABS: ABG BASE EXCESS 0.3 mmol/L (-2.0-2.0); ARTERIAL BLOOD GAS PH 7.499 (7.35-7.45)
--- NOTE | 2020-05-02 12:10 | NUR ---
PATIENT REMAIN ON LEVOPRED(QS), VASOPRESSIN, AND EPINEPHRINE (QS) GTTS. UNABLE TO MAINTAIN MAP >70. FAMILY CALLED >1 HR AGO. STILL NOT HERE. TALKED TO SON AND SISTER PETE. ALMAS COLES RN
--- NOTE | 2020-05-02 12:12 | NUR ---
CODE BLUE CALLED. NO PULSES NOTED. CPR STARTED. MONITOR: PEA SEE CODE BLUE SHEET. ALMAS COLES RN
--- NOTE | 2020-05-02 12:31 | NUR ---
PATIENT . NO VS NOTED. MONITOR ASYTOLE. LINES REMOVED FROM PATIENT. FAMILY HERE AT BEDSIDE (SON AND SISTER). ALMAS COLES RN
--- NOTE | 2020-05-02 13:30 | NUR ---
EDGARDO FROM [facility] NOTIFIED. CASE # [id number] ALMAS COLES RN
--- NOTE | 2020-05-02 15:10 | NUR ---
BODY TAKEN TO MIGUELITO. PERSONAL BELONGSING TAKEN BY LEELA. ALMAS COLES RN
== END 2020-05-02 15:10 | disposition expired | DRG 871 ==
LOC: ED 06:47 → 4E 10:15 → 5E 10:15 → ICCU 10:15 → EDHOLD 10:15 → 5E 04-18 08:54 → EDHOLD 04-18 08:54 → 5E 04-18 14:08 → 4E 04-21 18:56 → ICCU 04-26 19:45
PROVIDERS: Hospitalist; Internal Medicine; Internal Medicine Critical Care Medicine; Internal Medicine Nephrology; Student in an Organized Health Care Education/Training Program; ADMIT Family Medicine; ATTEND Family Medicine
PROC: 06H033Z Insertion of Infusion Device into Inferior Vena Cava, Percutaneous Approach (ICD-10-PCS; 2020-04-17)
PROC: B5191ZA Fluoroscopy of Inferior Vena Cava using Low Osmolar Contrast, Guidance (ICD-10-PCS; 2020-04-17)
PROC: B549ZZA Ultrasonography of Inferior Vena Cava, Guidance (ICD-10-PCS; 2020-04-17)
PROC: 0JH63XZ Insertion of Tunneled Vascular Access Device into Chest Subcutaneous Tissue and Fascia, Percutaneous Approach (ICD-10-PCS; principal; 2020-04-19)
PROC: 5A1D70Z Performance of Urinary Filtration, Intermittent, Less than 6 Hours Per Day (ICD-10-PCS; 2020-04-19)
PROC: 02H633Z Insertion of Infusion Device into Right Atrium, Percutaneous Approach (ICD-10-PCS; 2020-04-22)
PROC: B548ZZA Ultrasonography of Superior Vena Cava, Guidance (ICD-10-PCS; 2020-04-22)
PROC: 0JH63XZ Insertion of Tunneled Vascular Access Device into Chest Subcutaneous Tissue and Fascia, Percutaneous Approach (ICD-10-PCS; 2020-04-22)
PROC: 5A09357 Assistance with Respiratory Ventilation, Less than 24 Consecutive Hours, Continuous Positive Airway Pressure (ICD-10-PCS; 2020-04-24)
PROC: 5A09357 Assistance with Respiratory Ventilation, Less than 24 Consecutive Hours, Continuous Positive Airway Pressure (ICD-10-PCS; 2020-04-26)
PROC: 5A0955A Assistance with Respiratory Ventilation, Greater than 96 Consecutive Hours, High Flow/Velocity Cannula (ICD-10-PCS; 2020-04-27)
PROC: 5A1D70Z Performance of Urinary Filtration, Intermittent, Less than 6 Hours Per Day (ICD-10-PCS; 2020-04-27)
PROC: 02HV33Z Insertion of Infusion Device into Superior Vena Cava, Percutaneous Approach (ICD-10-PCS; 2020-05-01)
PROC: B548ZZA Ultrasonography of Superior Vena Cava, Guidance (ICD-10-PCS; 2020-05-01)
PROC: 03HY32Z Insertion of Monitoring Device into Upper Artery, Percutaneous Approach (ICD-10-PCS; 2020-05-01)
PROC: 5A1935Z Respiratory Ventilation, Less than 24 Consecutive Hours (ICD-10-PCS; 2020-05-01)
PROC: 0BH17EZ Insertion of Endotracheal Airway into Trachea, Via Natural or Artificial Opening (ICD-10-PCS; 2020-05-01)
DX: A41.89 Other specified sepsis (principal); N18.6 End stage renal disease; U07.1 COVID-19; N17.0 Acute kidney failure with tubular necrosis; J96.01 Acute respiratory failure with hypoxia; J12.82 Pneumonia due to coronavirus disease 2019; E87.1 Hypo-osmolality and hyponatremia; I13.2 Hypertensive heart and chronic kidney disease with heart failure and with stage 5 chronic kidney disease, or end stage renal disease; D68.59 Other primary thrombophilia; K92.2 Gastrointestinal hemorrhage, unspecified; E46 Unspecified protein-calorie malnutrition; I47.2 Ventricular tachycardia; I77.0 Arteriovenous fistula, acquired; I50.9 Heart failure, unspecified; D64.9 Anemia, unspecified; R73.9 Hyperglycemia, unspecified; E83.41 Hypermagnesemia; D72.829 Elevated white blood cell count, unspecified; D47.3 Essential (hemorrhagic) thrombocythemia; E87.5 Hyperkalemia; R74.01 Elevation of levels of liver transaminase levels; E78.1 Pure hyperglyceridemia; I95.9 Hypotension, unspecified; E66.3 Overweight; I25.2 Old myocardial infarction; Z82.49 Family history of ischemic heart disease and other diseases of the circulatory system; Z83.3 Family history of diabetes mellitus; Z86.73 Personal history of transient ischemic attack (TIA), and cerebral infarction without residual deficits; Z68.29 Body mass index [BMI] 29.0-29.9, adult